=== PATIENT | female | born 1980 | race Two or more races ===

== ENCOUNTER 2019-03-20 18:07 | Inpatient (IN) | payer OTHER, MEDICAID ==
[~2019-03-20] VITALS: Ht 165.1 cm; Wt 102.6 kg
[~2019-03-20 18:07] MED LIST: ALBU0.084 INH; ALPR1TAB7 PO; AMI25T PO; BUSP10TA90 PO; HCTZ25T PO; IPRAAER6; LEVO150T10 PO; LISI10TA6 PO; LOSA-39 PO; METO1TAB9 PO; SERDISK
[2019-03-20] MEDS ORDERED: IPRATROPIUM BROM 0.5 MG/2.5ML INH SOL NEB ONE ×2 (18:45→19:30)
[2019-03-20] MEDS ORDERED: ALBUTEROL SULF 2.5 MG/0.5ML(0.5%) NEB SOLN NEB ONE ×2 (18:45→19:30)
[2019-03-20 19:22] LABS: Basophils # (auto) 0.1 uL; Basophils % (auto) 0.9 % (0.0-2.0); Eosinophils # (auto) 0.6 uL; Eosinophils % (auto) 11.5 % (0.0-7.0); Hematocrit 37.5 % (36.0-46.0); Hemoglobin 12.8 g/dL (12.2-16.2); Lymphocytes # (auto) 1.6 uL; Lymphocytes % (auto) 28.8 % (10.0-50.0); Mean Corpuscular Hemoglobin 32.9 pg (28.0-32.0); Mean Corpuscular Volume 96.8 fL (80.0-100.0); Monocytes # (auto) 0.3 uL; Monocytes % (auto) 5.6 % (0.0-12.0); Neutrophils % (auto) 53.2 % (37.0-80.0); Platelet Count (auto) 346 10^3/uL (140-450); Red Blood Cells 3.88 10^6/uL (4.0-5.20); White Blood Cell 5.6 10^3/uL (4.4-10.8)
[2019-03-20 19:30] LABS: Urine Bacteria NONE SEEN /hpf (None Seen); Urine Blood Negative /uL (Negative); Urine Mucus FEW (None Seen); Urine Specific Gravity 1.008 (1.001-1.035); Urine WBC 11 /hpf (0 - 5)
[2019-03-20] MEDS ORDERED: cefTRIAXone 1GM/50ML D5W 50 ML IV ONE ×2 (19:30→22:45)
[2019-03-20] MEDS ORDERED: methylPREDNISolone SOD SUCC 125 MG/2 ML VL IV ONE (19:30)
[2019-03-20 19:40] LABS: Alanine Aminotransferase 22 U/L (13-56); Albumin 3.1 g/dL (3.4-5.0); Anion Gap 6 (5-15); Aspartate Aminotransferase 15 U/L (15-37); BUN/Creatinine Ratio 18.3; Blood Urea Nitrogen 13 mg/dL (7-18); Calcium 7.1 mg/dL (8.5-10.1); Carbon Dioxide 24 mmol/L (21-32); Chloride 110 mmol/L (98-107); GFR African American 118 mL/min; GFR Non-African American 98 mL/min; Glucose 98 mg/dL (74-106); Magnesium 2.4 mg/dL (1.6-2.6); Sodium 140 mmol/L (136-145)
[2019-03-20 19:45] LABS: Alkaline Phosphatase 73 U/L (45-117); Bilirubin, Total 0.2 mg/dL (0.2-1.0); Total Protein 7.1 g/dL (6.4-8.2)
[2019-03-20] MEDS ORDERED: NITROGLYCERIN 0.4 MG SL TAB SL PRN (22:45)
[2019-03-20] MEDS ORDERED: AZITHROMYCIN 500MG/ 250ML 250 ML IV ONE (22:45)
[2019-03-20 23:17] VITALS: BP 129/81
[2019-03-21] VITALS (14 sets, daily range): BP systolic 97–187; BP diastolic 50–105
[2019-03-21] MEDS: MORPHINE SULF INJ 2 MG/ML SYRINGE 1ML IV PRN ×5 (00:32→18:18)
[2019-03-21] MEDS: ALPRAZolam 0.5 MG TAB PO PRN ×3 (00:32→23:00)
--- NOTE | 2019-03-21 01:10 | NUR ---
Telemetry admit from ER KEVIN BUTLER admitted to Telemetry unit. Patient oriented to Dc Epperson, primary RN, unit, room, bed, and unit policies regarding patient care and visiting hours. Patient now on continuous telemetry monitoring, tele box #6 and telemetry reading on arrival to unit is ST 100. Patient placed on bedside oxygen, weighed by bedscale and encouraged to call if they need something. All questions and concerns addressed, patient verbalized understanding.
[2019-03-21] MEDS ORDERED: OMEP20TA PO (02:51)
[2019-03-21] MEDS ORDERED: FLUO20CA19 PO (02:51)
[2019-03-21] MEDS ORDERED: [UNRECOGNIZED DRUG - CODE] PO (02:51)
[2019-03-21] MEDS: methylPREDNISolone SOD SUCC 40 MG/ML VL IV SCH ×2 (05:46→14:30)
[2019-03-21] MEDS: LEVOTHYROXINE SODIUM 50 MCG TAB PO SCH (05:53)
[2019-03-21] MEDS: IPRATROPIUM BROM 0.5 MG/2.5ML INH SOL NEB SCH ×6 (06:52→22:09)
[2019-03-21] MEDS: ALBUTEROL SULF 2.5 MG/0.5ML(0.5%) NEB SOLN NEB SCH ×6 (06:52→22:09)
[2019-03-21] MEDS: BUDESONIDE (INHALATION) 0.5 MG/2 ML NEB NEB SCH ×2 (06:53→18:06)
--- NOTE | 2019-03-21 07:25 | NUR ---
CLOSING SHIFT NOTE Care has been endorsed to day shift RN.
--- NOTE | 2019-03-21 07:35 | NUR ---
Opening Shift Note Assumed care of patient, awake and alert x4, resting in bed. No S/S of distress/SOB, no pain noted or reported. Respirations are even and unlabored on RA. Updated on POC and instructed to call for assistance as needed, pt. verbalized understanding. Bed locked in lowest position, side rails up x2, call light within reach. Will continue to monitor for changes Q1hr and PRN.
[2019-03-21] MEDS: cefTRIAXone 1GM/50ML D5W 50 ML IV SCH (09:10)
[2019-03-21] MEDS: AZITHROMYCIN 500MG/ 250ML 250 ML IV SCH (09:49)
[2019-03-21] MEDS: LISINOPRIL 10 MG TAB PO SCH (09:50)
--- NOTE | 2019-03-21 10:25 | NUR ---
Respiratory note: PT REFUSED MN TX AT THIS TIME. NO SOB OR DISTRESS NOTED. PT WAS NOTIFY HER NEXT TX WAS AT 1400. PT STATED SHE DID NOT NEED OR WANT IT AT THIS TIME.
[2019-03-21] MEDS ORDERED: METOPROLOL TARTRATE 1MG/1ML-5ML VIAL IV ONE (15:10)
[2019-03-21] MEDS ORDERED: LORazepam 2MG/ML-1ML VIAL ONE (15:15)
[2019-03-21] MEDS ORDERED: LEVALBUTEROL HCL 1.25 MG/3 ML NEB ONE (15:15)
[2019-03-21] MEDS ORDERED: IPRATROPIUM BROM 0.5 MG/2.5ML INH SOL ONE (15:16)
[2019-03-21] MEDS ORDERED: methylPREDNISolone SOD SUCC 125 MG/2 ML VL ONE (15:19)
[2019-03-21] MEDS ORDERED: LEVALBUTEROL HCL 1.25 MG/0.5 ML NEB SOLN HHN STA (15:20)
[2019-03-21] MEDS ORDERED: IPRATROPIUM BROM 0.5 MG/2.5ML INH SOL NEB ONE (15:20)
--- NOTE | 2019-03-21 15:30 | NUR ---
RT Transport Note: Patient transported to ICU 110 with BELLA WARNER. Patient transported to and from procedure on ventilator with previous ordered settings. Patient on forest technology professor with alarms set and audible, ambu-bag/mask connected to 02 tank. Patient returned to room with no adverse reaction noted. Transport completed without incident.
--- NOTE | 2019-03-21 15:30 | NUR ---
Upon answering the call light at 1452, pt. was sitting in tripod position and just finished breathing treatment 20 minutes prior. Pt was wheezing and having a hard time breathing and requested PRN morphine and xanax for her pain and anxiety. Medicated per Md orders at 1455. After medicating pt. become very diaphoretic and was struggling to breath. Tele reading in the 170's, BP was 168/115, and O2 sat was 78-81%. Dr. Mattson was made aware of condition and came to bedside. Medication orders were received and followed through. Respiratory therapy was paged stat and put pt. on Bipap. Pt. was transferred to ICU Rm 110.
--- NOTE | 2019-03-21 15:37 | NUR ---
RECEIVED PT. VIA BED TO RM. 110 ICU. PLACED ON ONLINE SERVICES MANAGER, PULSE OX, BP CUFF. PT. ALERT AND ORIENTED TIMES FOUR. DENIES ANY PAIN OR DISCOMFORT, PREVIOUSLY MED. PT. SITTING UP IN HIGH FOWLERS POSITION, SOB, DIAPHORETIC, WORKING TO BREATH. RT PLACED PT. ON BIPAP 12/, FIO2-100%. O2 SATS 93%-95%. LUNGS WITH WHEEZES INSPIRATORY AND EXPIRATORY THROUGHOUT ANTERIOR AND POSTERIOR LUNGS. ABD. SOFT, FLAT, NON-TENDER. BOWEL SOUNDS ALL FOUR QUADRANTS. NO N/V. RADIAL PULSES STRONG, PALPABLE JAQUELINE. PEDAL PULSES STRONG, PALPABLE JAQUELINE. NO EDEMA. PT. MOVES ALL EXTREMITIES WITHOUT DIFFICULTY.
--- NOTE | 2019-03-21 16:15 | NUR ---
RT TOOK PT. OFF BIPAP AND PLACED ON 02 3L N/C. NO SOB. NO LONGER DIAPHORETIC. O2 SATS 93%. NO SIGNS OF RESP. DISTRESS.
--- NOTE | 2019-03-21 17:00 | NUR ---
VISITOR AT THE BS.
[2019-03-21] MEDS: methylPREDNISolone SOD SUCC 125 MG/2 ML VL IV SCH (17:32)
--- NOTE | 2019-03-21 17:45 | NUR ---
O2 SATS 91% ON 02 3L N/C. NO SOB. WHEEZES JAQUELINE. INSPIRATORY AND EXPIRATORY. RR TEENS. INCREASED O2 TO 4L N/C, ADDED HUMIDIFIER. MONITORING PT.
--- NOTE | 2019-03-21 18:15 | NUR ---
O2 SATS 91%-93%. NO SIGNS OF RESP. DISTRESS.
--- NOTE | 2019-03-21 18:18 | NUR ---
PT. REPORTING PAIN LT. LATERAL CHEST 9 ON A SCALE OF 0-10. MED. WITH MORPHINE 2MG. IVP.
[2019-03-21] MEDS: AMITRIPTYLINE HCL 25 MG TAB PO SCH (22:04)
[2019-03-22] VITALS (17 sets, daily range): BP systolic 105–142; BP diastolic 56–100
[2019-03-22] MEDS: methylPREDNISolone SOD SUCC 125 MG/2 ML VL IV SCH ×5 (00:01→23:47)
[2019-03-22] MEDS: HYDROcodone-ACET 5/325MG TAB PO PRN ×4 (00:21→23:51)
[2019-03-22] MEDS: IPRATROPIUM BROM 0.5 MG/2.5ML INH SOL NEB SCH ×6 (02:08→22:36)
[2019-03-22] MEDS: ALBUTEROL SULF 2.5 MG/0.5ML(0.5%) NEB SOLN NEB SCH ×6 (02:08→22:36)
--- NOTE | 2019-03-22 06:00 | NUR ---
OUT OF BED OUT OF BED TO USE TOILET. DURING AMBULATION PT'S HR INCREASED TO 110'S AND RESP RATE IN LOW 20'S, OTHER VITAL SIGNS ARE STABLE.
[2019-03-22] MEDS: BUDESONIDE (INHALATION) 0.5 MG/2 ML NEB NEB SCH ×2 (06:10→18:15)
[2019-03-22] MEDS: LEVOTHYROXINE SODIUM 50 MCG TAB PO SCH (06:33)
[2019-03-22] MEDS: ALPRAZolam 0.5 MG TAB PO PRN ×2 (06:33→20:56)
--- NOTE | 2019-03-22 07:45 | NUR ---
ASSESS- PT. LYING IN BED ASLEEP, WAKENS TO NAME. ALERT AND ORIENTED TIMES FOUR. DENIES ANY PAIN OR DISCOMFORT AT THIS TIME. LUNGS WITH WHEEZES INSPIRATORY AND EXPIRATORY THROUGHOUT LUNGS. NO SOB. O2 4L N/C WITH HUMIDIFIER. ABD. SOFT, FLAT, NON-TENDER. BOWEL SOUNDS ALL FOUR QUADRANTS. NO N/V. VOIDS VIA TOILET WITHOUT DIFFICULTY. RADIAL PULSES STRONG, PALPABLE JAQUELINE. PEDAL PULSES STRONG, PALPABLE JAQUELINE. 1 PLUS EDEMA NON-PITTING FT. JAQUELINE. SKIN INTACT. PT. MOVES ALL EXT. WITHOUT DIFFICULTY AND TURNS SELF IN BED.
[2019-03-22] MEDS: cefTRIAXone 1GM/50ML D5W 50 ML IV SCH (08:53)
[2019-03-22] MEDS: AZITHROMYCIN 500MG/ 250ML 250 ML IV SCH (10:09)
[2019-03-22] MEDS: LISINOPRIL 10 MG TAB PO SCH (10:09)
--- NOTE | 2019-03-22 10:30 | NUR ---
O2 SATS 97%-98% ON 4L N/C. NO SOB. WHEEZES HEARD THROUGHOUT LUNGS INSPIRATORY AND EXPIRATORY. NO SIGNS OF RESP. DISTRESS. DECREASED O2 TO 3L N/C WITH HUMIDIFIER.
[2019-03-22] MEDS ORDERED: guaiFENesin-DM 100/10mg/5ml SYR PO PRN (10:45)
--- NOTE | 2019-03-22 10:50 | NUR ---
O2 SATS REMAIN 97%. NO SOB OR SIGNS OF RESP. DISTRESS.
--- NOTE | 2019-03-22 11:00 | NUR ---
DR. MOREJON Provider/Hospitalist at bedside. GAVE UPDATE ON PT. NEW ORDERS RECEIVED. PT. DOWNGRADED TO TELEMETRY.
--- NOTE | 2019-03-22 11:05 | NUR ---
PT. HAS NON-PRODUCTIVE DRY COUGH. MED. PT. WITH ROBITUSSIN 10ML. PO.
--- NOTE | 2019-03-22 13:15 | NUR ---
GAVE REPORT TO SHANE DONG. PT. GOING TO RM. 246-A. NO TELE BOX AVAILABLE AT THIS TIME. INFORMED CHARGE NURSE.
--- NOTE | 2019-03-22 13:30 | NUR ---
FAMILY VISITING AT THE .
--- NOTE | 2019-03-22 14:20 | NUR ---
Received patient to Room 246A. Patient placed on O2 3L. Patient is alert and oriented. Call light in reach. Will continue to monitor.
--- NOTE | 2019-03-22 14:20 | NUR ---
PT. TRANSFERRED VIA W/C WITH O2 3L N/C TO RM. 246-A ON TELE #43. BELONGINGS WITH PT. REPORT GIVEN TO SHANE DONG.
--- NOTE | 2019-03-22 14:26 | NUR ---
RT NOTE: PEAK FLOW PRE- 180, POST-220
--- NOTE | 2019-03-22 18:19 | NUR ---
RT NOTE: PEAK FLOW ASSESSMENT: PRE- 250LPM, POST- 220LPM
--- NOTE | 2019-03-22 19:30 | NUR ---
Opening Note Assumed pt care from day shift nurse. Pt is a/ox4 with no s/s of distress. Pt states that she is mildly SOB and states that she feels like she cannot catch her breath. Discussed available breathing treatments and encouraged her to take deep breaths; pt verbalized understanding. Lungs are wheezy upon exhalation bilaterally anterior and posterior. Safety measures maintained with call light within reach, bed in lowest position and side rails up. Will continue to monitor for changes q1hr and prn.
[2019-03-22] MEDS: MONTELUKAST SODIUM 10 MG TAB PO SCH (20:56)
[2019-03-22] MEDS: AMITRIPTYLINE HCL 25 MG TAB PO SCH (20:56)
--- NOTE | 2019-03-22 22:35 | NUR ---
RT NOTE: PEAK FLOW ASSESSMENT: PRE- 280LPM, POST- 300LPM
[2019-03-23] MEDS: HYDROcodone-ACET 5/325MG TAB PO PRN ×3 (04:10→22:51)
[2019-03-23 05:00] VITALS: BP 136/86
[2019-03-23] MEDS: methylPREDNISolone SOD SUCC 125 MG/2 ML VL IV SCH ×2 (05:45→18:09)
[2019-03-23] MEDS: LEVOTHYROXINE SODIUM 50 MCG TAB PO SCH (06:22)
[2019-03-23] MEDS: IPRATROPIUM BROM 0.5 MG/2.5ML INH SOL NEB SCH ×5 (06:55→22:30)
[2019-03-23] MEDS: ALBUTEROL SULF 2.5 MG/0.5ML(0.5%) NEB SOLN NEB SCH ×5 (06:55→22:30)
[2019-03-23] MEDS: BUDESONIDE (INHALATION) 0.5 MG/2 ML NEB NEB SCH ×2 (06:55→18:31)
--- NOTE | 2019-03-23 08:00 | NUR ---
Opening Shift Note Assumed care of patient, awake and alert. No S/S of distress/SOB or pain. Instructed on POC and to call for assist PRN, will continue to monitor for changes Q1hr and PRN.
[2019-03-23 09:00] VITALS: BP 134/89
[2019-03-23] MEDS: cefTRIAXone 1GM/50ML D5W 50 ML IV SCH (09:15)
[2019-03-23] MEDS: LISINOPRIL 10 MG TAB PO SCH (09:16)
[2019-03-23] MEDS: AZITHROMYCIN 500MG/ 250ML 250 ML IV SCH (11:00)
[2019-03-23 13:00] VITALS: BP 142/88
[2019-03-23 17:00] VITALS: BP 133/86
--- NOTE | 2019-03-23 18:21 | NUR ---
Respiratory note: PEAK FLOWS DONE PRE AND POST TX, 320 PRE, 330 POST. GOOD PT EFFORT.
[2019-03-23 19:19] VITALS: BP 133/86
[2019-03-23 22:07] VITALS: BP 117/74
--- NOTE | 2019-03-23 22:24 | NUR ---
Respiratory note: TX GIVEN, TOLERATED WELL. PT REFUSING PEAK FLOW AT THIS TIME, STATES SHE IS TOO TIRED.
[2019-03-23] MEDS: AMITRIPTYLINE HCL 25 MG TAB PO SCH (22:51)
[2019-03-23] MEDS: MONTELUKAST SODIUM 10 MG TAB PO SCH (22:52)
[2019-03-24] MEDS: HYDROcodone-ACET 5/325MG TAB PO PRN (04:59)
[2019-03-24 05:18] VITALS: BP 121/77
[2019-03-24] MEDS: ALBUTEROL SULF 2.5 MG/0.5ML(0.5%) NEB SOLN NEB SCH ×2 (06:21→09:49)
[2019-03-24] MEDS: IPRATROPIUM BROM 0.5 MG/2.5ML INH SOL NEB SCH ×2 (06:21→09:49)
[2019-03-24] MEDS: methylPREDNISolone SOD SUCC 125 MG/2 ML VL IV SCH (06:24)
[2019-03-24] MEDS: LEVOTHYROXINE SODIUM 50 MCG TAB PO SCH (06:24)
--- NOTE | 2019-03-24 07:03 | NUR ---
Care endorsed to Marnie LYNN.
--- NOTE | 2019-03-24 08:30 | NUR ---
RESP ASSESSMENT LUNGS WITH WHEEZES LT BASE. STATES SHE FEELS BETTER BUT HAS CHRONIC PAIN LT RIB CAGE AREA. STATES HURTS WORSE WHEN SHE IS ON STEROIDS. NO RESP DISTRESS. STSTED SHE HOPED TO BE DISCHARGED TODAY
[2019-03-24 09:00] VITALS: BP 134/85
[2019-03-24] MEDS: cefTRIAXone 1GM/50ML D5W 50 ML IV SCH (09:38)
[2019-03-24] MEDS: BUDESONIDE (INHALATION) 0.5 MG/2 ML NEB NEB SCH (09:49)
--- NOTE | 2019-03-24 09:49 | NUR ---
Respiratory note: PEAK FLOW ASSESSMENT: PRE 400 ML POST 400 ML
[2019-03-24] MEDS ORDERED: AZITHROMYCIN 250 MG TAB PO SCH (10:00)
[2019-03-24] MEDS: LISINOPRIL 10 MG TAB PO SCH (10:05)
--- NOTE | 2019-03-24 10:25 | NUR ---
DR. MOREJON IN. PLAN TO DISCHARGE IF SPO2 WNL. O2 REMOVED
[2019-03-24] MEDS ORDERED: AZIT250T7 PO (10:55)
[2019-03-24] MEDS ORDERED: MONT10TA23 PO (10:55)
--- NOTE | 2019-03-24 11:20 | NUR ---
CASH RT CHECKED SPO2 ON RA X1HR= 95%
[2019-03-24 11:25] VITALS: BP 134/85
--- NOTE | 2019-03-24 11:35 | NUR ---
[facility] AT [facility]EDSIDE WITH DISCHARGE MEDS
--- NOTE | 2019-03-24 12:17 | NUR ---
DISCHG INSTRUCTIONS GIVEN IV DC INTACT SITE CLEAN. 2X2, [employer]AN DRESSING APPLIED PT HAS APPT WITH HER PMD TOMORROW. GIVEN PACKET FOR HER PMD. AWAITING RIDE FROM SON; HE WILL BE HERE SHORTLY
[2019-03-24 12:30] VITALS: BP 135/84
--- NOTE | 2019-03-24 12:30 | NUR ---
DISCHARGE VIA WC TO PRIVATE CAR. ALL BELONGINGS SIGNED FOR AND SENT WITH PT. HAS HER MEDS INSTRUCTED BY [facility]. AMB TO CAR WITHOUT DIFFICULTY NO RESP DISTRESS.
== END 2019-03-24 12:30 | disposition home or self-care (01) | DRG 189 ==
LOC: ER 18:10 → TELE 18:11 → TELE-EAST 03-21 01:07 → TELE-WESTW 03-21 01:10 → ICU WEST 03-21 15:37 → TELE-EAST 03-22 14:19 → EAST 03-23 19:38
PROVIDERS: ADMIT Internal Medicine; ATTEND Internal Medicine
PROC: 5A09357 Assistance with Respiratory Ventilation, Less than 24 Consecutive Hours, Continuous Positive Airway Pressure (ICD-10-PCS; principal; 2019-03-21)
DX: J96.00 Acute respiratory failure, unspecified whether with hypoxia or hypercapnia (principal); N39.0 Urinary tract infection, site not specified; J45.42 Moderate persistent asthma with status asthmaticus; I42.9 Cardiomyopathy, unspecified; E66.01 Morbid (severe) obesity due to excess calories; E03.9 Hypothyroidism, unspecified; F32.9 Major depressive disorder, single episode, unspecified; E78.5 Hyperlipidemia, unspecified; F41.9 Anxiety disorder, unspecified; I25.10 Atherosclerotic heart disease of native coronary artery without angina pectoris; I50.9 Heart failure, unspecified; Z82.3 Family history of stroke; Z82.49 Family history of ischemic heart disease and other diseases of the circulatory system; Z83.3 Family history of diabetes mellitus; Z85.850 Personal history of malignant neoplasm of thyroid; Z86.711 Personal history of pulmonary embolism; Z95.810 Presence of automatic (implantable) cardiac defibrillator; Z98.84 Bariatric surgery status; Z80.9 Family history of malignant neoplasm, unspecified; Z82.61 Family history of arthritis; Z88.6 Allergy status to analgesic agent; Z88.8 Allergy status to other drugs, medicaments and biological substances; Z79.84 Long term (current) use of oral hypoglycemic drugs; E11.9 Type 2 diabetes mellitus without complications
CPT/HCPCS: 36415; 36600; 71045; 71046; 80053; 81001; 81025; 82805; 83036; 83735; 83880; 84484; 85025; 87081; 87086; 94010; 94640; 94660; 96365; 96366; 96367; 96375; G0378; J0696

== ENCOUNTER 2019-05-16 14:49 | Emergency (ER) | payer OTHER, MEDICAID ==
[~2019-05-16] VITALS: Ht 165.1 cm; Wt 88.5 kg
[~2019-05-16 14:49] MED LIST changes: +AZIT250T7 PO; +FLUO20CA19 PO; -LISI10TA6 PO; -LOSA-39 PO; +MONT10TA23 PO; +OMEP20TA PO; +[UNRECOGNIZED DRUG - CODE] PO
[2019-05-16] MEDS ORDERED: methylPREDNISolone SOD SUCC 125 MG/2 ML VL ONE (14:57)
[2019-05-16] MEDS ORDERED: TERBUTALINE SULFATE 1 MG/ML 1ML VIAL SC ONE (15:00)
[2019-05-16] MEDS ORDERED: methylPREDNISolone SOD SUCC 125 MG/2 ML VL IV ONE (15:00)
[2019-05-16] MEDS ORDERED: SODIUM CHLORIDE 0.9% 1,000 ML IV ONE (15:19)
[2019-05-16 15:51] LABS: Basophils # (auto) 0 uL; Basophils % (auto) 0.4 % (0.0-2.0); Eosinophils # (auto) 0.1 uL; Eosinophils % (auto) 1.4 % (0.0-7.0); Hematocrit 39.8 % (36.0-46.0); Hemoglobin 13.2 g/dL (12.2-16.2); Lymphocytes # (auto) 3.2 uL; Lymphocytes % (auto) 32.3 % (10.0-50.0); Mean Corpuscular Hemoglobin 31.3 pg (28.0-32.0); Mean Corpuscular Hgb Conc. 33.2 g/dL (32.0-36.0); Mean Corpuscular Volume 94.3 fL (80.0-100.0); Monocytes # (auto) 0.7 uL; Monocytes % (auto) 7.1 % (0.0-12.0); Neutrophils # (auto) 5.8 uL; Neutrophils % (auto) 58.8 % (37.0-80.0); Nucleated Red Blood Cells % 0.1 %; Platelet Count (auto) 427 10^3/uL (140-450); Red Blood Cells 4.22 10^6/uL (4.0-5.20); Red Cell Distribution Width 13.4 % (11.8-14.3); White Blood Cell 9.8 10^3/uL (4.4-10.8)
[2019-05-16 15:53] LABS: Albumin 3.9 g/dL (3.4-5.0); BUN/Creatinine Ratio 14.9; Calcium 7.7 mg/dL (8.5-10.1); Magnesium 2.5 mg/dL (1.6-2.6); Potassium 4.1 mmol/L (3.5-5.1)
[2019-05-16 15:56] LABS: Bilirubin, Total 0.5 mg/dL (0.2-1.0)
[2019-05-16 16:04] LABS: Beta HCG, Quantitative < 1 mlU/mL (1-3)
[2019-05-16 16:52] VITALS: BP 121/69
== END 2019-05-16 17:42 | disposition home or self-care (01) ==
LOC: ER 14:49 → MERGE 14:49 → EDBD 14:49 → ER 17:42
DX: J45.901 Unspecified asthma with (acute) exacerbation (principal); N39.0 Urinary tract infection, site not specified; E03.9 Hypothyroidism, unspecified; I50.9 Heart failure, unspecified; K21.9 Gastro-esophageal reflux disease without esophagitis; E07.9 Disorder of thyroid, unspecified
CPT/HCPCS: 36415; 71045; 80053; 81002; 81025; 83735; 84443; 84702; 85025; 93005; 94660; 94761; 96372; 99284; J2930; J3105; J7030

== ENCOUNTER 2019-05-24 19:30 | Inpatient (IN) | payer OTHER, MEDICAID ==
[~2019-05-24] VITALS: Ht 165.1 cm; Wt 98.2 kg
[2019-05-24] MEDS: fentaNYL Drip 2500mCg/250mlNS 250 ML IV SCH (16:15)
[2019-05-24] MEDS ORDERED: IPRATROPIUM BROM 0.5 MG/2.5ML INH SOL ONE (19:37)
[2019-05-24] MEDS ORDERED: ALBUTEROL SULF 2.5 MG/0.5ML(0.5%) NEB SOLN ONE (19:37)
[2019-05-24 19:45] VITALS: BP 153/79
[2019-05-24] MEDS ORDERED: ALBUTEROL SULF 2.5 MG/0.5ML(0.5%) NEB SOLN NEB ONE (19:45)
[2019-05-24] MEDS ORDERED: IPRATROPIUM BROM 0.5 MG/2.5ML INH SOL NEB ONE (19:45)
[2019-05-24] MEDS ORDERED: LORazepam 2MG/ML-1ML VIAL IV ONE (19:45)
[2019-05-24] MEDS ORDERED: methylPREDNISolone SOD SUCC 125 MG/2 ML VL IV ONE (19:45)
--- NOTE | 2019-05-24 19:45 | NUR ---
Respiratory note: At bedside in er bed 16, pt came in via ambulance on cpap. Placed on bipap b9, bipap connected to red outlet and o2 source. Alarms are set and audible. Ambu bag and mask at bedside , Pt on size (m) mask no redness or breakdown noted prior to placement. BS are bilaterally course with fine expiratory wheezes. Med neb tx given inline without adverse reaction noted. pt communicating by writing on paper. RN [place] at bedside and aware of settings and pts needs.
[2019-05-24 20:07] LABS: Basophils # (auto) 0.1 uL; Basophils % (auto) 0.9 % (0.0-2.0); Eosinophils # (auto) 0 uL; Hematocrit 38.9 % (36.0-46.0); Hemoglobin 12.9 g/dL (12.2-16.2); Lymphocytes % (auto) 7.2 % (10.0-50.0); Mean Corpuscular Hemoglobin 31.3 pg (28.0-32.0); Mean Corpuscular Hgb Conc. 33.2 g/dL (32.0-36.0); Mean Corpuscular Volume 94.3 fL (80.0-100.0); Monocytes # (auto) 0.6 uL; Monocytes % (auto) 4.5 % (0.0-12.0); Neutrophils # (auto) 11.9 uL; Neutrophils % (auto) 87.4 % (37.0-80.0); Platelet Count (auto) 401 10^3/uL (140-450); Red Blood Cells 4.13 10^6/uL (4.0-5.20); Red Cell Distribution Width 14.2 % (11.8-14.3); White Blood Cell 13.6 10^3/uL (4.4-10.8)
[2019-05-24 20:24] LABS: Albumin 3.9 g/dL (3.4-5.0); BUN/Creatinine Ratio 19.5; Calcium 7.8 mg/dL (8.5-10.1); Potassium 4.5 mmol/L (3.5-5.1)
[2019-05-24 20:35] LABS: Bilirubin, Total 0.2 mg/dL (0.2-1.0); Total Protein 7.6 g/dL (6.4-8.2)
[2019-05-24 20:49] VITALS: BP 128/78
--- NOTE | 2019-05-24 20:49 | NUR ---
Respiratory note: AT BEDSIDE FOR ROUTINE BIPAP CHECK. NO CHANGES MADE AT THIS TIME. MASK READJUSTED TO ACHIEVE ACCEPTABLE LEAK. PTS FAMILY AT BEDSIDE.
[2019-05-24 20:52] VITALS: BP 153/79
[2019-05-24] MEDS ORDERED: ONDANSETRON HCL 4 MG/2 ML VIAL ONE (20:57)
[2019-05-24] MEDS ORDERED: ONDANSETRON HCL 4 MG/2 ML VIAL IV ONE (21:00)
[2019-05-24] MEDS ORDERED: ETOMIDATE (2MG/ML) 20ML VIAL IV ONE ×2 (21:28→21:30)
[2019-05-24] MEDS ORDERED: SUCCINYLCHOLINE CHLORIDE 20 MG/ML 10ML VIAL IV ONE ×2 (21:28→21:30)
[2019-05-24] MEDS ORDERED: methylPREDNISolone SOD SUCC 125 MG/2 ML VL ONE (21:49)
[2019-05-24 21:50] VITALS: BP 126/76
--- NOTE | 2019-05-24 21:50 | NUR ---
Respiratory note: PT INTUBATED AT 21:[address] SPENCE ON 3DR ATTEMPT, PT INTUBATED WITH 8.0 ETT SECURED AT 22CM AT THE LIP. BILATERAL BS HEARD, POSITIVE COLOR CHANGE ON CO2 DETECTOR. CONDENSATION SEEN IN ETT. PLACED ON VENT V15, VENT CONNECTED TO RED OUTLET AND O2 SOURCE. ALARMS ARE SET AND AUDIBLE. AMBU BAG AND MASK AT BEDSIDE. BS ARE COURSE WHEEZES T/O, SXD SCANT BLOOD TINGE CLEAR. SPUTUM SAMPLE OBTAINED AND SENT TO LAB AT THIS TIME. RN ESTRADA AWARE OF ALL RESPIRATORY INTERVENTIONS. WILL CONTINUE TO MONITOR NEEDED.
[2019-05-24] MEDS ORDERED: MIDAZOLAM DRIP 50 mg/50mL 50 ML IV ONE (21:52)
[2019-05-24] MEDS: MIDAZOLAM DRIP 50 mg/50mL 50 ML IV SCH ×2 (21:52→22:51)
[2019-05-24] MEDS ORDERED: FAMOTIDINE (10MG/ML) 2ML VL IV ONE (22:00)
--- NOTE | 2019-05-24 22:06 | NUR ---
Respiratory note: ETT ADVANCED FROM 22CM AT THE LIP TO 24CM AT THE LIP. RN ESTRADA MADE AWARE.
[2019-05-24] MEDS ORDERED: fentaNYL Drip 2500mCg/250mlNS 250 ML IV SCH (22:17)
[2019-05-24] MEDS ORDERED: fentaNYL Drip 2500mCg/250mlNS 250 ML IV ONE (22:22)
[2019-05-24] MEDS ORDERED: PROPOFOL 100 ML IV ONE (22:43)
[2019-05-24] MEDS ORDERED: PROPOFOL 100 ML IV SCH (23:31)
[2019-05-24] MEDS ORDERED: NOREPINEPHRINE 8 MG/250ML KIT 250 ML IV ONE (23:32)
[2019-05-24] MEDS ORDERED: MORPHINE SULF INJ 2 MG/ML SYRINGE 1ML IV PRN (23:45)
[2019-05-24] MEDS ORDERED: AZITHROMYCIN 500MG/ 250ML 250 ML IV ONE (23:45)
[2019-05-24] MEDS ORDERED: NITROGLYCERIN 0.4 MG SL TAB SL PRN (23:45)
[2019-05-24] MEDS ORDERED: BUDESONIDE (INHALATION) 0.5 MG/2 ML NEB NEB ONE (23:45)
[2019-05-24] MEDS ORDERED: SODIUM CHLORIDE 0.9% 1,000 ML IV ONE (23:45)
[2019-05-24] MEDS ORDERED: cefTRIAXone 1GM/50ML D5W 50 ML IV ONE (23:45)
[2019-05-24 23:53] LABS: Urine Bacteria FEW /hpf (None Seen); Urine Blood Negative /uL (Negative); Urine Hyaline Cast FEW /lpf (0 - 2); Urine Mucus FEW (None Seen); Urine Specific Gravity 1.013 (1.001-1.035); Urine WBC <1 /hpf (0 - 5)
[2019-05-25] VITALS (100 sets, daily range): BP systolic 75–146; BP diastolic 28–98
--- NOTE | 2019-05-25 00:07 | NUR ---
Respiratory note: AT BEDSIDE FOR ROUTINE VENT CHECK, PTS FAMILY AT BEDSIDE. MED NEB TX GIVEN INLINE WITHOUT ADVERSE REACTION NOTED. WILL CONTINUE TO MONITOR.
--- NOTE | 2019-05-25 00:25 | NUR ---
Respiratory note: FIO2 TITRATED TO 50% POST ABG RESULTS. PT TOLERATING CHANGE WELL. RN ESTRADA Guzman MADE AWARE OF CHANGE.
--- NOTE | 2019-05-25 00:50 | NUR ---
ARRIVAL NOTE PT ARRIVED TO ICU FROM ER AND PLACED IN ROOM 108. RECEIVED PT ON VENTILATOR WITH SEDATION. PROP AT 10 MCG, VERSED A 5 MG, AND FENTANYL AT 100 MCG. RECEIVED PT ON LEVO AT 10 MCG. PT STACH, 102, BP 104/57. SPO2 100% RR 16. PT WEIGHED AT 98.6 KGS. PT ATTACHED TO ICU MONITORING. RECEIVED PT WITH 20 G LEFT WRIST IV, 18 LFT AC, AND 20 G RIGHT WRIST. IV SITES BENIGN. MACIEL CATHETER IN PLACE, DRAINING TO GRAVITY. BED LOCKED AND IN LOWEST POSITION, SAFETY PRECAUTIONS IN PLACE. NO PERSONAL BELONGINGS BROUGHT WITH PATIENT.
[2019-05-25] MEDS: NOREPINEPHRINE 8 MG/250ML KIT 250 ML IV SCH ×2 (01:00→11:20)
--- NOTE | 2019-05-25 01:20 | NUR ---
FAMILY AT BEDSIDE PARENTS AT BEDSIDE. POC REVIEWED WITH THEM OBTAINED CONTACT INFORMATION AND PASSWORD, SEE INTERVENTION SPREADSHEET FOR DETAILS. ICU POLICY AND PROCEDURES REVIEWED WITH PARENTS. VERBALIZED UNDERSTANDING.
[2019-05-25] MEDS: PROPOFOL 100 ML IV SCH (01:53)
[2019-05-25] MEDS: ALBUTEROL SULF 2.5 MG/0.5ML(0.5%) NEB SOLN NEB SCH ×6 (02:03→22:29)
[2019-05-25] MEDS: IPRATROPIUM BROM 0.5 MG/2.5ML INH SOL NEB SCH ×6 (02:03→22:29)
--- NOTE | 2019-05-25 02:03 | NUR ---
Respiratory note: AT BEDSIDE FOR ROUTINE VENT CHECK. BS ARE FINE COURSE WHEEZES T/O. MED NEB TX GIVEN INLINE WITHOUT ADVERSE REACTION NOTED. WILL CONTINUE TO MONITOR.
--- NOTE | 2019-05-25 02:09 | NUR ---
Respiratory note: TITRATED FIO2 TO 30% ON VENT. PT TOLERATING CHANGE WELL. SHANE CHAUHAN AT BEDSIDE AND MADE AWARE.
--- NOTE | 2019-05-25 02:51 | NUR ---
SEDATION PT WOKE UP AND REMOVED MITTENS AND WENT TO GRAB ET TUBE. PT INSTRUCTED NOT TO PULL ON TUBE. PT NODDED HEAD IN UNDERSTANDING. PT FOLLOWS SIMPLE COMMANDS. PROPOFOL INCREASED TO 20MCG AT THIS TIME.
--- NOTE | 2019-05-25 04:10 | NUR ---
Respiratory note: AT BEDSIDE FOR END OF SHIFT VENT CHECK. HEM CHANGED AT THIS TIME. NO VENT CHANGES MADE. ATTEMPTED TO PLACE SEVERAL BITE BLOCKS PT KEEPS PUSHING OUT. PT IS NOTICED TO BE FOLLOWING SOME COMMANDS AND NODDING YES AND NO. PT REMAINS WITH EYES CLOSE DURING COMMUNICATION ATTEMPTS. FOR PTS SAFETY AND TO FACILITATE SX, I SWITCHED ETT CANNON WITH ONE THAT HAS BITE BLOCK INTEGRATED. PTS ETT WAS FOUND TO BE AT 22CM AT THE LIP. SHANE CHAUHAN COMMUNICATED PTS SEDATION WAS INCREASED DUE TO HER WAKING UP AND REACHING TO TUBE. COMMUNICATED TO RN THAT SHE MIGHT HAVE TRIED TO PULL SINCE ETT WAS NOT AT 24CM AT THE LIP LAST VENT CHECK. ETT ADVANCED TO 24CM AT THE LIP AND ETT CANNON WAS SWITCHED WITHOUT INCIDENT. SHANE CHAUHAN AWARE OF CHANGES, WILL HAVE DAY SHIFT RT CONTINUE POC.
[2019-05-25 05:38] LABS: Basophils # (auto) 0 uL; Basophils % (auto) 0.1 % (0.0-2.0); Eosinophils # (auto) 0 uL; Hematocrit 34.5 % (36.0-46.0); Hemoglobin 11.4 g/dL (12.2-16.2); Lymphocytes # (auto) 0.7 uL; Lymphocytes % (auto) 3.8 % (10.0-50.0); Mean Corpuscular Hemoglobin 31.4 pg (28.0-32.0); Mean Corpuscular Volume 95.1 fL (80.0-100.0); Monocytes # (auto) 0.4 uL; Neutrophils # (auto) 18.1 uL; Neutrophils % (auto) 94.1 % (37.0-80.0); Platelet Count (auto) 359 10^3/uL (140-450); Red Blood Cells 3.62 10^6/uL (4.0-5.20); Red Cell Distribution Width 14.1 % (11.8-14.3); White Blood Cell 19.2 10^3/uL (4.4-10.8)
[2019-05-25 05:42] LABS: Albumin 3.4 g/dL (3.4-5.0); BUN/Creatinine Ratio 13.5; Calcium 6.7 mg/dL (8.5-10.1); INR 0.94 (0.9-1.15); Partial Thromboplastin Time 22.1 sec (23.64-32.05); Potassium 4.1 mmol/L (3.5-5.1)
[2019-05-25 05:45] LABS: Bilirubin, Total 0.2 mg/dL (0.2-1.0); Total Protein 6.8 g/dL (6.4-8.2)
[2019-05-25] MEDS ORDERED: methylPREDNISolone SOD SUCC 40 MG/ML VL IV SCH (06:00)
[2019-05-25] MEDS: MIDAZOLAM DRIP 50 mg/50mL 50 ML IV SCH ×2 (06:03→11:20)
[2019-05-25] MEDS: BUDESONIDE (INHALATION) 0.5 MG/2 ML NEB NEB SCH ×2 (06:23→19:05)
--- NOTE | 2019-05-25 08:40 | NUR ---
ECHO light rail signal technician at bedside to obtain study.
[2019-05-25] MEDS: cefTRIAXone 1GM/50ML D5W 50 ML IV SCH (09:00)
[2019-05-25] MEDS ORDERED: methylPREDNISolone SOD SUCC 125 MG/2 ML VL IV ONE (09:30)
[2019-05-25] MEDS ORDERED: ALBUTEROL SULF 2.5 MG/0.5ML(0.5%) NEB SOLN NEB ONE ×2 (09:30→16:15)
--- NOTE | 2019-05-25 09:30 | NUR ---
HOSPICE ENTRANCE ATTENDANT HOSPICE ENTRANCE ATTENDANT Espinoza Campa called to speak to RT regarding patient high peak pressures and setting ventilator off. Spoke to Espinoza COLÓN and updated on patient condition, received new orders this RN to input into system. Will carry out orders per HOSPICE ENTRANCE ATTENDANT.
[2019-05-25] MEDS ORDERED: methylPREDNISolone SOD SUCC 125 MG/2 ML VL ONE (09:40)
[2019-05-25] MEDS: FAMOTIDINE (10MG/ML) 2ML VL IV SCH ×2 (09:46→22:19)
[2019-05-25] MEDS: AZITHROMYCIN 500MG/ 250ML 250 ML IV SCH (09:46)
[2019-05-25] MEDS: MAGNESIUM SULFATE 1GM/100ML 100 ML IV SCH ×2 (09:53→11:00)
--- NOTE | 2019-05-25 10:05 | NUR ---
KATARZYNA Campa aware of ABG results and states " Will speak to Dr. Bashir to see what we should do."
--- NOTE | 2019-05-25 10:15 | NUR ---
PICC CONSENT Called and spoke to Cheyanne miller mother at [phone], correct password provided, and consent obtained over the phone with Alejandro LYNN as the second RN to witness.
--- NOTE | 2019-05-25 10:20 | NUR ---
MD Dr. Bashir at bedside updated on patient condition with new orders, MD to input into system. Will carry out orders and will monitor closely.
[2019-05-25] MEDS ORDERED: DEXTROSE (50%) 50ML SYRG IV PRN (10:30)
[2019-05-25] MEDS: InsuLIN REG 1unit/0.01ml Soln (100units/ml) SC SCH ×2 (12:00→18:00)
[2019-05-25] MEDS: ACCU-CHEK COMFORT CURVE STRIP VI SCH ×2 (12:00→18:00)
--- NOTE | 2019-05-25 13:45 | NUR ---
PICC LINE NURSE Picc line nurse Anita RN at bedside to obtain line.
[2019-05-25] MEDS ORDERED: methylPREDNISolone SOD SUCC 125 MG/2 ML VL IV SCH (14:00)
[2019-05-25] MEDS: methylPREDNISolone SOD SUCC 125 MG/2 ML VL IV SCH ×2 (14:00→22:19)
--- NOTE | 2019-05-25 14:14 | NUR ---
MD Dr. Bashir called and aware of ABG results post ventilator changes received new orders, this RN to in put int system. Will carry out orders.
--- NOTE | 2019-05-25 14:15 | NUR ---
LEVOPHED GTT Levophed gtt increased to 12mcg for a blood pressure of 81/28, will continue to monitor patient closely.
[2019-05-25] MEDS ORDERED: LIDOCAINE 1% (LOCAL ANESTH.) PF 5ml SDV ID ONE (14:30)
--- NOTE | 2019-05-25 14:33 | NUR ---
PICC line placement Patient significant other educated on need for PICC line placement. All risks and benefits explained and all questions and concerns addressed prior to procedure. Noted past medical history and allergies with no contraindications. INR and Plt counts within acceptable range. 5 fr PICC line inserted via left basilic vein using [employer] US and Tip Location System. Sterile technique with maximum barrier precautions utilized. Blood return obtained from each of the 3 lumens and each flushed easily with NS using proper technique. PICC secured with Stat-lock; biodisc and occlusive dressing applied. Stat portable chest x-ray obtained for PICC tip placement. *Baseline Arm Circumference 37 cm. Internal length 47 cm. External length 1 cm. PICC lot #[id number] Addendum: 05/25/19 at 1538 by ZO WALLACE RN Initial chest xray showed PICC line residing in contralateral subclavian vein. PICC line exchanged over wire using sterile technique and readjusted. Pending repeat chest xray results to confirm placement. Addendum: 05/25/19 at 1539 by ZO WALLACE RN New PICC line trimmed to 49 cm. External length 0 cm.
[2019-05-25] MEDS: SODIUM BICARBONATE 50ML VIAL 50 ML in SOD CHL 0.45% 1,000 ML IV SCH (15:00)
--- NOTE | 2019-05-25 16:15 | NUR ---
Respiratory note: NOTED HIGH PEAK PRESSURES DURING VENT CHECK AND I/E WHEEZING WITH NO CHANGES AFTER MEDNEB TX. CALLED TO NOTIFY DR GUEVARA. ORDERS GIVEN, WILL CARRY OUT. NOTIFIED SHANE GORDON.
--- NOTE | 2019-05-25 16:30 | NUR ---
Okay to use PICC line Xray completed and reviewed. Okay to use PICC line.
--- NOTE | 2019-05-25 17:15 | NUR ---
SEDATION Diprivan increased to 20mcg and Versed increased to 15mg.
--- NOTE | 2019-05-25 18:20 | NUR ---
DATA TECHNICAL LEAD Paged out to Espinoza Campa ans spoke to him regarding patient has high PIP pressures and alarming ventilator, Maxed out on sedation gtt's and heart rate in the 140's. New orders received, this RN to input into system. Per Espinoza if patients CO2 is 60 or above will paralyze patient. Addendum: 05/25/19 at 1845 by EVAN SANTIZO RN RT Camille avitia
[2019-05-25] MEDS ORDERED: SODIUM CHLORIDE 0.9% 500 ML IV ONE (19:30)
--- NOTE | 2019-05-25 20:00 | NUR ---
pt. receiving 500ml ns bolus as per rx.
[2019-05-25] MEDS: SODIUM CHLOR 0.9% PF (SALINE LOCK) 10ML VIAL/SYR IV SCH (22:19)
[2019-05-26] VITALS (107 sets, daily range): BP systolic 87–130; BP diastolic 34–74
--- NOTE | 2019-05-26 00:35 | NUR ---
COMPLETE BED BATH WITH CHG WIPES AND FULL LINEN CHANGE PROVIDED; PT. TOLERATED WELL; WILL CONT. TO MONITOR.
[2019-05-26] MEDS: InsuLIN REG 1unit/0.01ml Soln (100units/ml) SC SCH ×5 (00:36→23:47)
[2019-05-26] MEDS: ACCU-CHEK COMFORT CURVE STRIP VI SCH ×5 (00:36→23:47)
--- NOTE | 2019-05-26 01:25 | NUR ---
patient desating to 76%; not pulling volumes; labored breathing; max on all three sedation (fentanyl gtt, versed gtt, & propofol gtt); suctioned pt. and no secretions; audible leak from cuff and added 1ml of air to cuff-no change in resp. status; RT PAGED TO COME TO BEDSIDE; PREPARING TO BAG PATIENT-SATS SUDDENLY CAME UP TO 94%, BUT CONT. NOT TO PULL VOLUMES; WILL START ATRACURIUM GTT PER DR. PAIGE
[2019-05-26] MEDS: ALBUTEROL SULF 2.5 MG/0.5ML(0.5%) NEB SOLN NEB SCH ×6 (01:34→22:04)
[2019-05-26] MEDS: IPRATROPIUM BROM 0.5 MG/2.5ML INH SOL NEB SCH ×6 (01:34→22:04)
[2019-05-26] MEDS: ATRACURIUM BESYLATE 1,000 MG in D5W 5% 150 ML IV SCH ×2 (01:40→11:02)
--- NOTE | 2019-05-26 01:40 | NUR ---
ATRACURIUM GTT STARTED AND TOF BEFORE PARALYTIC IS LEVEL 7 4/4-PT. HEAVILY SEDATED; RT AT BEDSIDE.
--- NOTE | 2019-05-26 04:00 | NUR ---
TOF= LEVEL 9 09/15; WILL CONT. TO MONITOR.
[2019-05-26] MEDS: SODIUM BICARBONATE 50ML VIAL 50 ML in SOD CHL 0.45% 1,000 ML IV SCH (04:15)
[2019-05-26] MEDS: IPRATROPIUM BROM 0.5 MG/2.5ML INH SOL NEB PRN ×2 (04:39→16:41)
[2019-05-26] MEDS: ALBUTEROL SULF 2.5 MG/0.5ML(0.5%) NEB SOLN NEB PRN ×2 (04:39→16:41)
[2019-05-26 04:51] LABS: Basophils # (auto) 0 uL; Basophils % (auto) 0.1 % (0.0-2.0); Eosinophils # (auto) 0 uL; Hematocrit 30.9 % (36.0-46.0); Hemoglobin 10.4 g/dL (12.2-16.2); Lymphocytes # (auto) 0.5 uL; Mean Corpuscular Hemoglobin 32.1 pg (28.0-32.0); Mean Corpuscular Hgb Conc. 33.6 g/dL (32.0-36.0); Mean Corpuscular Volume 95.7 fL (80.0-100.0); Monocytes # (auto) 0.6 uL; Neutrophils # (auto) 17.3 uL; Neutrophils % (auto) 93.9 % (37.0-80.0); Platelet Count (auto) 271 10^3/uL (140-450); Red Blood Cells 3.23 10^6/uL (4.0-5.20); Red Cell Distribution Width 14.6 % (11.8-14.3); White Blood Cell 18.4 10^3/uL (4.4-10.8)
[2019-05-26 05:11] LABS: Albumin 3.1 g/dL (3.4-5.0); BUN/Creatinine Ratio 19.1; Calcium 6.6 mg/dL (8.5-10.1); Magnesium 2.6 mg/dL (1.6-2.6); Potassium 3.6 mmol/L (3.5-5.1)
[2019-05-26 05:16] LABS: Bilirubin, Total 0.2 mg/dL (0.2-1.0); Total Protein 6.4 g/dL (6.4-8.2)
[2019-05-26] MEDS: methylPREDNISolone SOD SUCC 125 MG/2 ML VL IV SCH ×4 (06:15→22:15)
[2019-05-26] MEDS ORDERED: ALBUTEROL SULF 2.5 MG/0.5ML(0.5%) NEB SOLN NEB ONE (06:45)
[2019-05-26] MEDS ORDERED: ALBUTEROL SULF 2.5 MG/0.5ML(0.5%) NEB SOLN ONE (06:46)
--- NOTE | 2019-05-26 07:20 | NUR ---
Respiratory note: RECEIVED PATIENT ON V15 ESPRIT VENT ORALLY INTUBATED WITH AN 8.0 ETT SECURED VIA NIURKA AT THE 24CM MARKING AT THE LIP, AND MECHANICALLY VENTILATED WITH THE CHARTED SETTINGS. SKIN WARM/DRY TO THE TOUCH AND IS INTACT NEAR NIURKA SITE. THERE IS A NGT PLACED IN THE RIGHT NARE AND SECURED TO THE NOSE. A PICC LINE IS PLACED IN THE LEFT UPPER ARM; NO OTHER ADVANCE ACCESS LINES NOTED. PITTING EDEMA NOTED IN ALL 4 EXTREMITIES. LEG SEQUENTIALS ARE IN PLACE AND OPERATIONAL. AM CXR ASSESSED AND IT SHOWS ETT HIGH SITTING APPROX 6CM ABOVE THE APARNA, ETT ADVANCED 2CM AND RESECURED AT THE 26CM MARKING AT THE LIP. SHANE RODRIGUEZ AND SHANE MATHIS MADE AWARE OF CHANGE. PATIENT BEGAN PEAK PRESSURING AND VOLUMES DECREASED TO 50ML'S, SPO2 DROPPED FROM HIGH 90'S, TO MID 80'S, AND DOWN TO THE LOWEST AT 54%. SHE WAS TAKEN OFF VENTILATOR AND BAGGED VIA AMBU-BAG ON 100% FIO2 WHEN SATS DROPPED INTO THE 80'S. PATIENT WAS BAGGED FROM 0615 UNTIL 0705. Q6 MED-NEB TX WAS BAGGED IN WITH NO CHANGE. PATIENTS PEAK PRESSURES REMAINED 55-65 DURING MANUAL VENTILATION WITH LUNG SOUNDS SEVERE COARSE WHEEZES IN ALL LUNG CARDENAS. SHANE RODRIGUEZ INCREASED ATRICURIUM PARALYTIC WITH NO CHANGE IN EASE TO VENTILATE PATIENT. A 20MG ALBUTEROL TX WAS ORDERED BY DR. GUEVARA AND STARTED AT APPROX 0650, BEING BAGGED IN UNTIL 0705. AT 0705 PATIENT WAS PLACED BACK ON VENTILATOR WITH ALL PREVIOUSLY ORDERED SETTINGS. PEAK PRESSURES REMAINED 55-58 BUT VOLUMES WERE ACHIEVED AND RANGED FROM 460-490ML. LUNG SOUNDS REMAIN SEVERE COARSE WHEEZES T/O. PATIENT IS UNRESPONSIVE TO ALL STIMULI AND IS SEDATED ON PROPOFOL, VERSED, AND FENTANYL DRIPS WELL PARALYZED ON AN ATRICURIUM DRIP. PATIENT IS TOLERATING VENT WELL BUT DOES CONTINUE TO HIGH PRESSURE. VENT PLUGGED INTO RED OUTLET AND ALL ALARMS ARE SET AND AUDIBLE. WILL CONTINUE TO ASSESS PATIENT WELL VENTILATOR FUNCTION.
--- NOTE | 2019-05-26 07:21 | NUR ---
Respiratory note: PATIENT BEGAN PEAK PRESSURING AND VOLUMES DECREASED TO 50ML'S, SPO2 DROPPED FROM HIGH 90'S, TO MID 80'S, AND DOWN TO THE LOWEST AT 54%. SHE WAS TAKEN OFF VENTILATOR AND BAGGED VIA AMBU-BAG ON 100% FIO2 WHEN SATS DROPPED INTO THE 80'S. PATIENT WAS BAGGED FROM 0615 UNTIL 07. Q6 MED-NEB TX WAS BAGGED IN WITH NO CHANGE. PATIENTS PEAK PRESSURES REMAINED 55-65 DURING MANUAL VENTILATION WITH LUNG SOUNDS SEVERE COARSE WHEEZES IN ALL LUNG CARDENAS. RN MICHAEL INCREASED ATRICURIUM PARALYTIC WITH NO CHANGE IN EASE TO VENTILATE PATIENT. A 20MG ALBUTEROL TX WAS ORDERED BY DR. GUEVARA AND STARTED AT APPROX 0650, BEING BAGGED IN UNTIL 07. AT 0705 PATIENT WAS PLACED BACK ON VENTILATOR WITH ALL PREVIOUSLY ORDERED SETTINGS. PEAK PRESSURES REMAINED 55-58 BUT VOLUMES WERE ACHIEVED AND RANGED FROM 460-490ML. LUNG SOUNDS REMAIN SEVERE COARSE WHEEZES T/O.
--- NOTE | 2019-05-26 07:57 | NUR ---
ATRACURIUM TITRATED DOWN PER PROTOCOL AND IS AT 8MCG/KG/MIN DUE TO TOF 0/4. WILL REASSESS IN 15 MINS PER PROTOCOL.
[2019-05-26] MEDS: MIDAZOLAM DRIP 50 mg/50mL 50 ML IV SCH ×2 (08:00→16:46)
--- NOTE | 2019-05-26 08:12 | NUR ---
TOF 0/4 LOWERED ATRACURIUM TO 6MCG/KG/MIN PER PROTOCOL
--- NOTE | 2019-05-26 08:27 | NUR ---
TOF 0/4, REDUCED ATRACURIUM TO 4 MCG/KG/MIN PER PROTOCOL.
--- NOTE | 2019-05-26 08:37 | NUR ---
Assessment Pt is a 38 yr old intubated female. SW called pt's sister, Rossy, at [phone] to ask her questions about pt. Prior to admit, pt lives with her parents, is ambulatory and independent with ADL's, cooking and cleaning. Pt uses a nebulizer often due to her asthma. Pt diagnosed with heart failure over 10 years ago but has had time to adjust and accept diagnosis and tends to be in general good mood. Pt has good support system with her immediate family. Pt is considered permanently disabled and receives disability income. Pt's sister expressed that the pt might need IHSS upon d/c. No other needs or concerns were expressed presently. SW will further assess for pt's needs closer to d/c. Addendum: 05/26/19 at 0940 by ANDRESSA MCCLELLAND Amended: Links added.
--- NOTE | 2019-05-26 08:50 | NUR ---
Respiratory note: VENT CHANGES: VT DECREASED TO 450 AT THIS TIME PER DR. GUEVARA'S ORDER. ABG TO FOLLOW IN 1HR. SHANE MATHIS MADE AWARE OF CHANGE.
[2019-05-26] MEDS: cefTRIAXone 1GM/50ML D5W 50 ML IV SCH (09:17)
--- NOTE | 2019-05-26 09:21 | NUR ---
TOF 1/4 CONTINUE ATRACURIUM AT 4 MCG/KG/MIN
[2019-05-26] MEDS: FAMOTIDINE (10MG/ML) 2ML VL IV SCH ×2 (09:28→22:15)
[2019-05-26] MEDS: ENOXAPARIN SOD 40 MG/0.4 ML SYRINGE SC SCH (09:31)
--- NOTE | 2019-05-26 10:00 | NUR ---
TOF 2/4, INCREASED ATRACURIUM TO 6MCG/KG/MIN FOR GOAL OF 1/4 TOF PER PROTOCOL AND INCREASED
[2019-05-26] MEDS: SODIUM CHLOR 0.9% PF (SALINE LOCK) 10ML VIAL/SYR IV SCH ×2 (10:03→22:15)
[2019-05-26] MEDS: PROPOFOL 100 ML IV SCH ×3 (10:03→16:47)
[2019-05-26] MEDS: AZITHROMYCIN 500MG/ 250ML 250 ML IV SCH (10:07)
[2019-05-26] MEDS: BUDESONIDE (INHALATION) 0.5 MG/2 ML NEB NEB SCH ×2 (10:13→18:01)
--- NOTE | 2019-05-26 10:15 | NUR ---
TOF 1/4, CONTINUE ATRACURIUM AT 6 MCG/KG/MIN
[2019-05-26] MEDS: fentaNYL Drip 2500mCg/250mlNS 250 ML IV SCH ×2 (11:03→16:48)
--- NOTE | 2019-05-26 12:00 | NUR ---
WOUND CARE NOTE: IN TO ASSESS PATIENT'S SKIN INTEGRITY AT THIS TIME. PATIENT ADMITTED TO [facility] WITH DIAGNOSIS OF ACUTE RESPIRATORY FAILURE. CURRENT ESHA SCORE IS 12. SHE IS INTUBATED, SEDATED. PATIENT HAS INTACT ABRASION TO THE LEFT BACK, LEFT OPEN TO AIR. ALL BONY PROMINENCES ARE PINK, BLANCHABLE. WOUND PHOTO TAKEN AT THIS TIME FOR REFERENCE. RECOMMEND: FREQUENT TURN SCHEDULE Q 2 HOURS, PRN CONDITION PERMITS, WITH PRESSURE REDISTRIBUTE PRESSURE POINTS USING PILLOWS/WEDGES, BID/PRN APPLICATION WITH MOISTURE BARRIER CREAM, OPTIFOAM GENTLE SACRAL DRESSING, SKIN/WOUND CARE PLAN, DIETARY CONSULT FOR LOW ESHA, CONTINUED MONITORING BY WOUND CARE TEAM. Addendum: 05/26/19 at 1708 by Deya Goldstein RN Amended: Links added.
[2019-05-26] MEDS ORDERED: SODIUM BICARBONATE 50ML VIAL 50 ML in SOD CHL 0.45% 1,000 ML IV SCH (12:45)
[2019-05-26] MEDS ORDERED: FUROSEMIDE 20 MG/2 ML VIAL IV ONE (12:45)
--- NOTE | 2019-05-26 14:00 | NUR ---
TOF 08/15, ATRACURIUM REMAINS AT 6MCG/KG/MIN
[2019-05-26] MEDS ORDERED: LEVO175T31 PO (14:22)
--- NOTE | 2019-05-26 14:26 | NUR ---
PAGED DR GUEVARA REGARDING HOME DOSE OF LEVOTHYROXINE, ALSO PLACED IN MED REC.
--- NOTE | 2019-05-26 16:30 | NUR ---
DR GUEVARA CALLED BACK, HOME MEDICATION DOSE OF LEVOTHYROXINE ORDERED.
[2019-05-26] MEDS: LEVOTHYROXINE SODIUM 100 MCG/5 ML INJ IV SCH (16:36)
--- NOTE | 2019-05-26 16:42 | NUR ---
Respiratory note: PATIENT PEAK PRESSURING AND HAD LOSS OF VOLUMES. VOLUMES DECREASED TO 30-50ML AND PATIENT HAD A DESATURATION DOWN TO 82% AND ETCO2 INCREASED TO 62. PATIENT WAS TAKEN OFF VENTILATOR AND MANUALLY VENTILATED VIA AMBU-BAG ON 100% FIO2. PATIENT WAS BAGGED FOR APPROX 4MIN AND SPO2 INCREASED TO 100%, AND ETCO2 DECREASED TO 43. PATIENT WAS PLACED BACK ON VENTILATOR WITH ALL PREVIOUSLY ORDERED SETTINGS. PRN MED-NEB TX ADMINISTERED INLINE AT THIS TIME FOR SEVERE BRONCHOSPASM. LUNG SOUNDS TIGHT WHEEZES IN APICES AND COARSE WHEEZES IN BASE. SHANE MATHIS AT BEDSIDE AND AWARE OF PATIENTS CONDITION AND ALL INTERVENTIONS TAKEN.
[2019-05-26] MEDS: Jevity 1.2 Cal/Fiber 1 Liter GT SCH (16:48)
--- NOTE | 2019-05-26 18:00 | NUR ---
TOF 1/, ATRACURIUM REMAINS 6 MCG/KG/MIN
--- NOTE | 2019-05-26 20:00 | NUR ---
WHILE ASSESSING MY PATIENT-JUST THE MOVEMENT OF ONE OF HER ARMS TRIGGERED AN INCREASE OF CO2 TO HIGH 40'S AND VOLUMES TO DROP LESS THAN 350; PT. TO UNSTABLE TO TURN AT THIS TIME AND WILL REASSESS UPON NEXT TURN TIME; TOF= 2/4 AT LEVEL 9; SEE INTERVENTIONS FOR ASSESSMENT; SEE IV SPREADSHEET FOR GTTS; WILL CONT. TO MONITOR.
--- NOTE | 2019-05-26 21:00 | NUR ---
SEDATION VACATION NOT PERFORMED NOT APPROPRIATE AT THIS TIME; PT. INTUBATED/SEDATED/ON PARALYTIC GTT; WILL CONT. TO MONITOR.
--- NOTE | 2019-05-26 23:00 | NUR ---
levophed gtt off; will cont. to monitor.
[2019-05-27] VITALS (104 sets, daily range): BP systolic 96–134; BP diastolic 47–86
[2019-05-27] MEDS: ALBUTEROL SULF 2.5 MG/0.5ML(0.5%) NEB SOLN NEB PRN (00:30)
--- NOTE | 2019-05-27 00:54 | NUR ---
PT. STARTED DESATING AT 23:56 TO 87%; SUCTIONED PT. VIA OROPHARYNX AND SATS CAME UP TO 97%; PT. SHORTLY AFTER HAD ANOTHER EPISODE WHERE SHE DESAT TO 89%; RT PAGED; SUCTIONED PT. AGAIN BOTH VIA ETT AND OROPHARYNX; PT. SATS CAME UP TO 96%; PT. THEN STARTED HAVING INCREASED PEAK PRESSURES, INCREASED CO2 TO 45, AND DECREASED VOLUMES TO <350ML; S/W RT AND WILL BE COMING TO BEDSIDE; 00:20 RT AT BEDSIDE AND PROVIDING MED NEB AND MANAGING PT. VENTILATION; 00:54 PT. FINALLY VENTILATING WNL, HAVING DECREASED PEAK PRESSURES TO 30, VOLUMES >350, AND INCREASED OXYGEN TO 50% PT. CONT. TO DROP SATS TO 90-91%; WILL CONT. TO MONITOR.
[2019-05-27] MEDS: NOREPINEPHRINE 8 MG/250ML KIT 250 ML IV SCH (01:00)
--- NOTE | 2019-05-27 04:00 | NUR ---
TOF= 2/4 AT LEVEL 9; WILL CONT. TO MONITOR.
[2019-05-27 04:28] LABS: Basophils # (auto) 0 uL; Basophils % (auto) 0.1 % (0.0-2.0); Eosinophils # (auto) 0 uL; Hematocrit 27.7 % (36.0-46.0); Hemoglobin 9.3 g/dL (12.2-16.2); Lymphocytes # (auto) 0.4 uL; Lymphocytes % (auto) 2.7 % (10.0-50.0); Mean Corpuscular Hemoglobin 32.1 pg (28.0-32.0); Mean Corpuscular Hgb Conc. 33.6 g/dL (32.0-36.0); Mean Corpuscular Volume 95.6 fL (80.0-100.0); Monocytes # (auto) 0.6 uL; Neutrophils # (auto) 14.4 uL; Neutrophils % (auto) 93.2 % (37.0-80.0); Nucleated Red Blood Cells % 0.1 %; Platelet Count (auto) 232 10^3/uL (140-450); Red Cell Distribution Width 14.4 % (11.8-14.3); White Blood Cell 15.4 10^3/uL (4.4-10.8)
[2019-05-27 04:46] LABS: BUN/Creatinine Ratio 22.7; Calcium 6.4 mg/dL (8.5-10.1); Magnesium 2.6 mg/dL (1.6-2.6); Potassium 3.6 mmol/L (3.5-5.1)
[2019-05-27] MEDS: methylPREDNISolone SOD SUCC 125 MG/2 ML VL IV SCH ×3 (06:00→21:24)
[2019-05-27] MEDS: ACCU-CHEK COMFORT CURVE STRIP VI SCH ×3 (06:00→18:10)
[2019-05-27] MEDS: InsuLIN REG 1unit/0.01ml Soln (100units/ml) SC SCH ×3 (06:00→18:15)
[2019-05-27] MEDS: ALBUTEROL SULF 2.5 MG/0.5ML(0.5%) NEB SOLN NEB SCH ×5 (06:13→21:56)
[2019-05-27] MEDS: IPRATROPIUM BROM 0.5 MG/2.5ML INH SOL NEB SCH ×5 (06:13→21:57)
--- NOTE | 2019-05-27 08:00 | NUR ---
TOF=0/4; DECREASED PARALYTIC GTT AND WILL MONITOR; SEE IV SPREADSHEET.
[2019-05-27] MEDS: cefTRIAXone 1GM/50ML D5W 50 ML IV SCH (08:49)
--- NOTE | 2019-05-27 09:00 | NUR ---
TOF= 2/4 AT LEVEL 9; WILL CONT. TO MONITOR.
--- NOTE | 2019-05-27 09:16 | NUR ---
UPDATED MOM AND DAD AT BEDSIDE ON PLAN OF CARE.
[2019-05-27] MEDS: FAMOTIDINE (10MG/ML) 2ML VL IV SCH ×2 (10:00→21:24)
[2019-05-27] MEDS: ENOXAPARIN SOD 40 MG/0.4 ML SYRINGE SC SCH (10:00)
[2019-05-27] MEDS: SODIUM CHLOR 0.9% PF (SALINE LOCK) 10ML VIAL/SYR IV SCH ×2 (10:00→21:24)
[2019-05-27] MEDS: LEVOTHYROXINE SODIUM 100 MCG/5 ML INJ IV SCH (10:00)
[2019-05-27] MEDS: AZITHROMYCIN 500MG/ 250ML 250 ML IV SCH (10:00)
[2019-05-27] MEDS: BUDESONIDE (INHALATION) 0.5 MG/2 ML NEB NEB SCH ×2 (10:02→22:22)
[2019-05-27] MEDS: ATRACURIUM BESYLATE 1,000 MG in D5W 5% 150 ML IV SCH (10:05)
--- NOTE | 2019-05-27 11:11 | NUR ---
NUTRITION CONSULT/ASSESSMENT NOTES Please refer to link notes of nutrition screen form filed under the intervention section of the plan of care for further details. Est. Needs: 1550 kcal to 2100 kcal (15-20 kcal/kgBW), 57 gms to 68 gms pro (1.0-1.2 gms/kgIBW: 57 kg). Will continue to monitor pertinent labs and reassess nutrient need prn Thank you for this consult. Addendum: 05/27/19 at [address] Amended: Links added.
--- NOTE | 2019-05-27 12:13 | NUR ---
REPORT GIVEN TO SHANE ABRAHAM.
--- NOTE | 2019-05-27 12:20 | NUR ---
REPORT/ASSESSMENT REPORT REC'D FROM [facility]. ASSESSMENT DONE. PT IS NONRESPONSIVE TO ALL STIMULI AND REFLEXES. CURRENT SEDATION IS: VERSED AT 15MG/HR, FENTANYL AT 200MCG/HR, PROPOFOL AT 50MCG/KG/M, TRACRIUM AT 7MCG. PER REPORT LAST TOF WAS 1/4. PUPILS EQUAL AT 3MM AND BRISK. ORALLY INTUBATED WITH 8.0 ETT/26 AT LIP VENT SETTINGS: AC 20, VT 450, FIO2 40% (RT RECENTLY LOWERED), PEEP 5. FAIR AMT THICK WHITE SECRETIONS. NG SECURE RT NARE, SECURED AT 60CM. CURRENTLY CLAMPED, WILL ASK PMD FOR TUBE FEEDINGS. SR ON MONITOR, BP STABLE.SKIN: INTACT HAS ABRASION ONMID BACK, CLEAN DRY, MINIMAL REDNESS. ABLE TO BE TURNED TO LT WITHOUT INCREASE IN CO2.
[2019-05-27] MEDS ORDERED: Jevity 1.2 Cal/Fiber 1 Liter GT SCH (12:45)
[2019-05-27] MEDS ORDERED: FUROSEMIDE 20 MG/2 ML VIAL IV ONE (12:45)
[2019-05-27] MEDS ORDERED: FUROSEMIDE 20 MG/2 ML VIAL ONE (12:47)
[2019-05-27] MEDS ORDERED: LEVOTHYROXINE SODIUM 50 MCG TAB PO ONE (13:00)
--- NOTE | 2019-05-27 14:00 | NUR ---
TOF DONE. USING 8 ON POWER WHEEL, 0/4. TRACRIUM DECREASED.
--- NOTE | 2019-05-27 14:30 | NUR ---
JEVITY TUBE FEEDING STARTED AT 30ML/HR
[2019-05-27] MEDS: MIDAZOLAM DRIP 50 mg/50mL 50 ML IV SCH ×2 (14:40→19:21)
[2019-05-27] MEDS: PROPOFOL 100 ML IV SCH ×3 (14:40→23:59)
--- NOTE | 2019-05-27 15:00 | NUR ---
TOF DONE. USING 7 ON POWER WHEEL, 0/4. TRACRIUM DECREASED
--- NOTE | 2019-05-27 16:00 | NUR ---
TOF DONE. USING 7 ON POWER WHEEL, 0/4. TRACRIUM DECREASED
--- NOTE | 2019-05-27 17:00 | NUR ---
TOF DONE USING 10 ON POWER WHEEL 09/15. TRACRIUM REMAINS AT CURRENT DOSE OF 4MCG
--- NOTE | 2019-05-27 18:00 | NUR ---
MARK FEEDING WELL, NO RESIDUAL
--- NOTE | 2019-05-27 20:00 | NUR ---
OPEN ASSUMED CARE OF FEMALE PT ORALLY INTUBATED. PT SEDATED ON DIPRIVAN GTT 50 MCG/KG/MIN, FENTANYL GTT 200 MCG/HR, AND VERSED GTT 15 MG/HR. PT ON PARALYTIC/TRACRIUM GTT AT 4 MCG/KG/MIN. WITH 2/4 TWITCHES. PT WITH NO COUGH OR GAG. SR ON FUR DYER. L. UPPER ARM PICC LINE IN PLACE ALL PORTS PATENT. NGT TO R. NARE WITH JEVITY FEEDING INFUSING AT 30 ML/HR. PLACEMENT VERIFIED. NO TUBE FEED RESIDUAL. 22 G IV TO R. HAND S/L, 20 G IV TO L. HAND S/L B &P. MACIEL TO GRAVITY DRAINING CLEAR YELLOW URINE. PT OBSERVED TO HAVE MOD AMOUNT OF FOUL SMELLING VAGINAL DISCHARGE. BRANDON CARE PROVIDED. JAQUELINE SCD'S IN PLACE. NO INDICATIO OF PAIN OBSERVED. BED IN LOWEST LOCKED POSITION. HOB ELEVATED 40 DEGREES. ABRASION OPEN TO AIR OBSERVED TO PT BACK. PT REPOSITIONED WITH PILLOWS USED TO OFFLOAD BONY PROMINENCES. PT IN FULL VIEW OF RN STATION. WILL CONTINUE TO MONITOR.
--- NOTE | 2019-05-27 20:00 | NUR ---
T.O.F. PT 2/4 ON TRACRIUM GTT 4 MCG/KG/MIN
--- NOTE | 2019-05-27 20:55 | NUR ---
FAMILY VISIT PT MOTHER, AND FATHER TO UNIT FOR VISIT. UPDATED REGARDING CURRENT CONDITION. ALL QUESTIONS AND CONCERNS ADDRESSED.
--- NOTE | 2019-05-27 22:27 | NUR ---
RESP/T.O.F. PT DESATURATED TO 68% FIO2 AND NOT APPEARING TO GET TIDAL VOLUMES ON VENT. R.T. PAGED. BAGGED PT. CHANGED HME. T.O.F. EVALUATED 3/4 TWITCHES. TRACRIUM GTT INCREASED PER PROTOCOL. PT PLACED BACK ON VENT. SATURATIONS 94% PT GETTING TIDAL VOLUMES ON VENT. WILL CONTINUE TO MONITOR.
[2019-05-28] VITALS (103 sets, daily range): BP systolic 106–136; BP diastolic 62–85
--- NOTE | 2019-05-28 | NUR ---
T.O.F. TOF 2/4 ON TRACRIUM 6 MCG/KG/MIN. WILL CONTINUE TO MONITOR.
[2019-05-28] MEDS: InsuLIN REG 1unit/0.01ml Soln (100units/ml) SC SCH ×4 (00:05→18:13)
[2019-05-28] MEDS: ACCU-CHEK COMFORT CURVE STRIP VI SCH ×4 (00:05→18:13)
[2019-05-28] MEDS: NOREPINEPHRINE 8 MG/250ML KIT 250 ML IV SCH (01:00)
[2019-05-28] MEDS: IPRATROPIUM BROM 0.5 MG/2.5ML INH SOL NEB SCH ×6 (02:09→22:11)
[2019-05-28] MEDS: ALBUTEROL SULF 2.5 MG/0.5ML(0.5%) NEB SOLN NEB SCH ×6 (02:09→22:11)
--- NOTE | 2019-05-28 02:14 | NUR ---
Respiratory note: FIO2 TITRATED TO 30%.
--- NOTE | 2019-05-28 03:00 | NUR ---
Patient bathe/linen change/MONITORING AND EVALUATION ADVISOR Patient given complete bath. Skin integrity assessed for any changes. Linens changed. Patient repositioned for comfort. AFTER SEVERAL CLEANINGS TO BRANDON AREA PT STILL OBSERVED TO BE HAVING MOD YELLOW THIN FOUL SMELLING DISCHARGE COMING FROM THE VAGINA. AREA CLEANSED WITH WARM SOAPY WATER AND PAT DRY.
[2019-05-28] MEDS: PROPOFOL 100 ML IV SCH ×6 (03:19→20:13)
[2019-05-28] MEDS: MIDAZOLAM DRIP 50 mg/50mL 50 ML IV SCH ×5 (03:20→20:02)
[2019-05-28 03:54] LABS: Basophils # (auto) 0 uL; Eosinophils # (auto) 0 uL; Hematocrit 29.5 % (36.0-46.0); Lymphocytes # (auto) 0.5 uL; Lymphocytes % (auto) 3.3 % (10.0-50.0); Mean Corpuscular Hemoglobin 32.2 pg (28.0-32.0); Mean Corpuscular Hgb Conc. 33.7 g/dL (32.0-36.0); Mean Corpuscular Volume 95.5 fL (80.0-100.0); Monocytes # (auto) 0.6 uL; Neutrophils # (auto) 13.1 uL; Neutrophils % (auto) 92.7 % (37.0-80.0); Nucleated Red Blood Cells % 0.1 %; Platelet Count (auto) 231 10^3/uL (140-450); Red Blood Cells 3.09 10^6/uL (4.0-5.20); White Blood Cell 14.2 10^3/uL (4.4-10.8)
[2019-05-28 04:11] LABS: BUN/Creatinine Ratio 28.6; Calcium 6.9 mg/dL (8.5-10.1); Potassium 3.5 mmol/L (3.5-5.1)
[2019-05-28] MEDS ORDERED: POTASSIUM CHL 20MEQ/100ML 100 ML IV ONE (05:45)
[2019-05-28] MEDS: methylPREDNISolone SOD SUCC 125 MG/2 ML VL IV SCH ×4 (05:56→22:14)
[2019-05-28] MEDS: LEVOTHYROXINE SODIUM 50 MCG TAB PO SCH (05:57)
[2019-05-28] MEDS: fentaNYL Drip 2500mCg/250mlNS 250 ML IV SCH ×2 (06:12→17:07)
[2019-05-28] MEDS: BUDESONIDE (INHALATION) 0.5 MG/2 ML NEB NEB SCH ×2 (06:43→22:11)
--- NOTE | 2019-05-28 08:00 | NUR ---
OPENING NOTE Received patient on mechanical ventilator sedated on Versed at 15mg, Diprivan at 50mcg and Fentanyl at 200mcg and paralytic Tracrium at 6 mcg/kg. Patient has no gag/cough reflex, pupils sluggish to light, does not follow commands, does not respond to tactile/verbal stimuli. Sinus rhythm in the 80's on bedside monitor, pulses palpable on upper/lower extremities with generalized edema observed. NG tube checked and verified via air bolus with zero residuals aspirated. Abdomen soft, non tender, non distended with hypoactive bowel sounds and unknown last bowel movement. Luther catheter draining to gravity draining light sola/greenish urine. Skin intact other than an abrasion to the left upper back with Optifoam (clean, dry and intact). PICC line to the left upper arm (TLC): good blood return and flushes easily. IV to the right hand 22g and left hand 20g. Will continue to monitor patient closely. Call light within reach and bed at lowest position.
[2019-05-28] MEDS: cefTRIAXone 1GM/50ML D5W 50 ML IV SCH (09:05)
[2019-05-28] MEDS: SODIUM CHLOR 0.9% PF (SALINE LOCK) 10ML VIAL/SYR IV SCH ×2 (10:18→22:14)
[2019-05-28] MEDS: AZITHROMYCIN 500MG/ 250ML 250 ML IV SCH (10:18)
[2019-05-28] MEDS: ENOXAPARIN SOD 40 MG/0.4 ML SYRINGE SC SCH (10:18)
[2019-05-28] MEDS: FAMOTIDINE (10MG/ML) 2ML VL IV SCH ×2 (10:18→22:14)
--- NOTE | 2019-05-28 12:00 | NUR ---
TRAIN OF FOUR TOF 2/4 using power wheel on 7.
--- NOTE | 2019-05-28 12:15 | NUR ---
NUTRITION Patients NG tube checked and verified via air bolus, zero residuals aspirated.
[2019-05-28] MEDS ORDERED: FUROSEMIDE 20 MG/2 ML VIAL IV ONE (13:45)
--- NOTE | 2019-05-28 13:45 | NUR ---
MD Dr. Bashir at bedside updated on patient condition by charge nurse Jillian while this RN at lunch break, Jillian received new orders to titrate Tracrium off.
--- NOTE | 2019-05-28 14:00 | NUR ---
TRACRIUM Tracrium decreased to 4mcg done by charge nurse Jillian during this RN lunch break per MD to discontinue GTT but titrate off.
--- NOTE | 2019-05-28 16:00 | NUR ---
TRAIN OF FOUR TOF 2/4 using power wheel on 7.
--- NOTE | 2019-05-28 16:00 | NUR ---
NUTRITION NG tube checked and verified via air bolus, zero residuals aspirated.
--- NOTE | 2019-05-28 17:00 | NUR ---
TRACRIUM Tracrium decreased to 2 mcg titrating GTT to discontinue.
--- NOTE | 2019-05-28 18:00 | NUR ---
TRACRIUM Tracrium GTT turned off.
--- NOTE | 2019-05-28 19:55 | NUR ---
OPEN ASSUMED CARE OF FEMALE PT ORALLY INTUBATED. PT SEDATED ON DIPRIVAN GTT 50 MCG/KG/MIN, FENTANYL GTT 200 MCG/HR, AND VERSED GTT 15 MG/HR. PT NON RESPONSIVE AT THIS TIME. PT SR ON RECYCLING CREW SUPERVISOR. L. UPPER ARM PICC LINE IN PLACE ALL PORTS PATENT. NGT TO R. NARE WITH JEVITY FEEDING INFUSING AT 30 ML/HR. PLACEMENT VERIFIED. NO TUBE FEED RESIDUAL. 22 G IV TO R. HAND S/L, 20 G IV TO L. HAND S/L B &P. MACIEL TO GRAVITY DRAINING CLEAR YELLOW URINE. PT OBSERVED TO HAVE MOD AMOUNT OF FOUL SMELLING VAGINAL DISCHARGE. BRANDON CARE PROVIDED. JAQUELINE SCD'S IN PLACE. NO INDICATION OF PAIN OBSERVED. BED IN LOWEST LOCKED POSITION. HOB ELEVATED 40 DEGREES. ABRASION TO L. UPPER BACK OBSERVED WITH OPTIFOAM NON ADHERENT DRESSING IN PLACE. PT REPOSITIONED WITH PILLOWS USED TO OFFLOAD BONY PROMINENCES. PT IN FULL VIEW OF RN STATION. WILL CONTINUE TO MONITOR.
--- NOTE | 2019-05-28 21:00 | NUR ---
FAMILY VISIT PT MOTHER AND FATHER TO UNIT FOR VISIT. UPDATED REGARDING PT CONDITION AND PLAN OF CARE. ALL QUESTIONS AND CONCERNS ADDRESSED.
--- NOTE | 2019-05-28 21:30 | NUR ---
ANDREA BOOTS PT SHOWING SOME SIGNS OF FOOT DROP. JAQUELINE ANDREA BOOTS PLACED.
--- NOTE | 2019-05-28 22:35 | NUR ---
Respiratory note: PT PLACED ON HEATED WIRE CIRCUIT, UNEVENTFUL. PT BAGGED WITH 100% FIO2, MASK AT BEDSIDE. VENT SST'D AND PASSED, PT PLACED BACK ON PREVIOUS VENT SETTINGS ON VENT V15.
[2019-05-28] MEDS: Jevity 1.2 Cal/Fiber 1 Liter GT SCH (22:36)
[2019-05-29] VITALS (88 sets, daily range): BP systolic 107–159; BP diastolic 62–101
[2019-05-29] MEDS: ACCU-CHEK COMFORT CURVE STRIP VI SCH ×4 (00:03→18:00)
[2019-05-29] MEDS: InsuLIN REG 1unit/0.01ml Soln (100units/ml) SC SCH ×4 (00:03→18:00)
[2019-05-29] MEDS: MIDAZOLAM DRIP 50 mg/50mL 50 ML IV SCH (00:49)
[2019-05-29] MEDS: NOREPINEPHRINE 8 MG/250ML KIT 250 ML IV SCH (01:00)
[2019-05-29] MEDS: ALBUTEROL SULF 2.5 MG/0.5ML(0.5%) NEB SOLN NEB SCH ×6 (02:18→22:04)
[2019-05-29] MEDS: IPRATROPIUM BROM 0.5 MG/2.5ML INH SOL NEB SCH ×6 (02:19→22:04)
--- NOTE | 2019-05-29 02:30 | NUR ---
Patient bathe/linen change Patient given complete bath. Skin integrity assessed for any changes. Linens changed. Patient repositioned for comfort.
[2019-05-29] MEDS: PROPOFOL 100 ML IV SCH ×3 (02:39→19:59)
[2019-05-29 04:35] LABS: Hematocrit 30.9 % (36.0-46.0); Hemoglobin 10.4 g/dL (12.2-16.2); Mean Corpuscular Hemoglobin 32.3 pg (28.0-32.0); Mean Corpuscular Hgb Conc. 33.5 g/dL (32.0-36.0); Mean Corpuscular Volume 96.5 fL (80.0-100.0); Platelet Count (auto) 224 10^3/uL (140-450); Red Cell Distribution Width 14.6 % (11.8-14.3); White Blood Cell 12.7 10^3/uL (4.4-10.8)
[2019-05-29 04:37] LABS: BUN/Creatinine Ratio 36.4; Potassium 4.2 mmol/L (3.5-5.1)
[2019-05-29 04:48] LABS: Basophils % (manual) 0 (0.0-2.0); Blast Cells 0; Eosinophils % (manual) 0 (0-7); Metamyelocytes % 0; Myelocytes % 0; Promyelocytes % 0; Reactive Lymphocytes 0
[2019-05-29 05:32] LABS: Band Neutrophils % (manual) 10; Lymphocytes % (manual) 5 (10.0-50.0); Monocytes % (manual) 3 (0-12)
[2019-05-29] MEDS: methylPREDNISolone SOD SUCC 125 MG/2 ML VL IV SCH ×3 (05:53→22:19)
[2019-05-29] MEDS ORDERED: LEVOTHYROXINE SODIUM 25 MCG TAB ONE (05:55)
[2019-05-29] MEDS ORDERED: LEVOTHYROXINE SODIUM 100 MCG TAB ONE (05:55)
[2019-05-29] MEDS: LEVOTHYROXINE SODIUM 50 MCG TAB PO SCH (06:05)
--- NOTE | 2019-05-29 08:00 | NUR ---
OPENING SHIFT NOTE REPORT RECEIVED FROM WHIZZER RN, MORNING ASSESSMENT PERFORMED AND DOCUMENTED. 38 YEAR OLD FEMALE, MECHANICALLY VENTILATED, OFF SEDATION FOR CPAP TRAIL THIS MORNING. PATIENT OPENS EYES WHEN CALLED BY NAME BUT UNABLE TO FOLLOW COMMANDS AT THIS TIME. WILL MONITOR PATIENT FOR ALERTNESS WHILE MAINTAINING SAFETY AND COMFORT. IV'S PATENT AND SALINE LOCK, MACIEL CATHETER PATENT AND DRAINING TO GRAVITY. FALL AND SAFETY PRECAUTIONS IN PLACE.
[2019-05-29] MEDS: BUDESONIDE (INHALATION) 0.5 MG/2 ML NEB NEB SCH ×2 (10:03→18:39)
[2019-05-29] MEDS: FAMOTIDINE (10MG/ML) 2ML VL IV SCH ×2 (10:30→22:19)
[2019-05-29] MEDS: cefTRIAXone 1GM/50ML D5W 50 ML IV SCH (10:32)
[2019-05-29] MEDS: AZITHROMYCIN 500MG/ 250ML 250 ML IV SCH (10:35)
[2019-05-29] MEDS: SODIUM CHLOR 0.9% PF (SALINE LOCK) 10ML VIAL/SYR IV SCH ×2 (10:35→22:19)
[2019-05-29] MEDS: ENOXAPARIN SOD 40 MG/0.4 ML SYRINGE SC SCH (10:36)
--- NOTE | 2019-05-29 12:29 | NUR ---
Nutrition Follow-up Notes Wt.: 104.0 kg Pt`s intubated on CPAP trial when rounded this am. per RN pt was tolerating TF well with Jevity 1.2 @ 40 ml.hr. pt is currently off feds and NPO Est. Needs: 1550 kcal to 2100 kcal (15-20 kcal/kgBW), 57 gms to 68 gms pro (1.0-1.2 gms/kgIBW: 57 kg). Will continue to monitor pertinent labs and reassess nutrient need prn Labs: BUN 24 H, GLU 207 H, CA 6.0 L. Skin: Salinas scale 110 high risk, GI: Pt has no BM reported per documentation designer. PES: Increased nutrient needs r/t current/chronic medical/nutritional status aeb intubated, sedated, mod hypoalbuminemia, NPO. Altered nutrition related lab values r/t current/chronic medical condition aeb hyperglycemia, hypocalcemia and mild hypoalbuminemia Will continue to monitor NPO status, skin status, pertinent labs and weight trend. F/u in 2 to 3 days. Rec.: 1.) Resume EN support of Jevity 1.2 Antonio @ 65 ml/hr goal rate as tolerated if off propofol and fails CPAP medically appropriate. 2.) If Albumin level continues trending down, consider Prostat 1 pkt BID. 3.) Advance gradually to oral diet when medically appropriate. 4.) Refer to RD for further nutrition educ. and weight monitoring upon discharge. 5.) Continue current plan of care.
--- NOTE | 2019-05-29 12:30 | NUR ---
HOSPITALIST AT BEDSIDE DR GUEVARA UPDATED ON PATIENT'S STATUS AND PENDING CPAP TRIAL DUE TO PATIENT NOT FULLY AWAKE AND/OR FOLLOWING COMMANDS. DR GUEVARA ALSO AWARE OF NOTED FOUL SMELLING VAGINAL CUBA COLOR DISCHARGE. DR GUEVARA VERBALIZED UNDERSTANDING AND ORDERED STAFF TO CONTINUE MONITORING. REGARDING CPAP, DR GUEVARA STATED OK TO RESTART PROPOFOL IF PATIENT BECOMES AGITATED ONCE SHE IS FULLY AWAKE AND WILL ATTEMPT CPAP TRIAL TOMORROW MORNING. ORDERS RECEIVED AND WILL BE CARRIED OUT.
[2019-05-29] MEDS ORDERED: FUROSEMIDE 20 MG/2 ML VIAL IV ONE (12:45)
[2019-05-29] MEDS ORDERED: POTASSIUM EFFERVESENT TAB 25 MEQ GT ONE (12:45)
--- NOTE | 2019-05-29 13:00 | NUR ---
ELEVATED TEMPERATURE 99.9 STUDENT VVC NURSE PROVIDED COOLING MEASURES, WILL CONTINUE TO MONITOR.
--- NOTE | 2019-05-29 14:00 | NUR ---
TEMP REASSESSMENT CURRENT TEMPT AFTER COOLING MEASURES 99.1 ORALLY, WILL CONTINUE TO MONITOR.
--- NOTE | 2019-05-29 15:00 | NUR ---
PT ASSESSED FOR CPAP TRIAL, PT OFF SEDATION PT OCCASIONALLY OPENS EYES AND FOLLOWS COMMANDS. PT WILL NOT STAY AWAKE. WILL CONTINUE TO MONITOR FOR CPAP TRIAL.
--- NOTE | 2019-05-29 18:35 | NUR ---
RT NOTE RECEIVED PT INTUBATED AND ON VENT V15 ON STATED SETTINGS .VENT IS PLUGGED TO RED OUTLET. ALARMS ARE ON AND AUDIBLE AT NURSES STATION. AMBU BAG AT BEDSIDE AND CONNECTED TO O2 SOURCE. 8.0 ETT IS SECURED WITH ANCHORFAST AT 26 CM TO THE ORAL RIGHT. BILATERAL BS ARE COARSE. PT WAS SUCTIONED FOR SCANT RETURN. HHN GIVEN INLINE WITH 5.0 MG ALBUTEROL, 0.5 MG ATROVENT AND 1 MG PULMICORT WITHOUT ADVERSE REACTION NOTED. PT ON HEATED CIRCUIT WITH CIRCUIT TEMP 36.0, eTcO2 36, POX 96%. Addendum: 05/29/19 at 1946 by Ness Bailey RT Amended: Links added.
--- NOTE | 2019-05-29 18:45 | NUR ---
NEURO ASSESSMENT/END OF SHIFT NOTE PATIENT RESTING IN BED, MECHANICALLY VENTILATED, NO DISTRESS NOTED, RESPIRATIONS EVEN AND UNLABORED. OPENS EYES WHEN CALLED BY NAME BUT UNABLE TO FOLLOW COMMANDS. PATIENT ABLE TO MOVE ALL EXTREMITIES WHEN PROVIDING COMFORT MEASURES BUT FATIGUES EASILY AND FALLS BACK TO SLEEP. PATIENT REMAINS OFF SEDATION AT THIS TIME, FALL AND SAFETY PRECAUTIONS IN PLACE. WILL ENDORSE CONTINUED CARE TO ANCHOR OPERATOR RN.
--- NOTE | 2019-05-29 19:45 | NUR ---
OPEN ASSUMED CARE OF FEMALE PT ORALLY INTUBATED. PT NOT ON SEDATION. PT OPENS EYES. MOVES EXTREMITIES. DOES NOT FOLLOW COMMANDS. SR ON PIPELINE DISPATCHER. NGT TO R. NARE CLAMPED. L UPPER ARM PICC LINE IN PLACE ALL PORTS PATENT. 20 G S/L TO L. F/A, 22 G S/L TO R. HAND B&P. SMALL ABRASION TO L UPPER BACK WITH NON ADHERENT DRESSING IN PLACE. MACIEL TO GRAVITY DRAINING CLOUDY YELLOW URINE. PT WITH MOD. AMOUNT FOUL SMELLING THIN YELLOW VAGINAL DISCHARGE. AREA CLEANSED WITH WARM SOAPY WATER. PAT DRY. JAQUELINE SCD'S IN PLACE. NO INDICATION OF PAIN OBSERVED. BED IN LOWEST LOCKED POSITION. SIDE RAILS UP X 2. HOB ELEVATED 30 DEGREES. PT IN FULL VIEW OF RN STATION. WILL CONTINUE TO MONITOR.
--- NOTE | 2019-05-29 19:59 | NUR ---
AGITATION PT ON VENTILATOR ATTEMPTING TO GET OOB. PROPOFOL RE-STARTED. WILL CONTINUE TO CLOSELY MONITOR.
--- NOTE | 2019-05-29 20:12 | NUR ---
RT NOTE ROUTINE VENT CHECK DONE. PT INTUBATED AND ON VENT V15 ON STATED SETTINGS .VENT IS PLUGGED TO RED OUTLET. ALARMS ARE ON AND AUDIBLE AT NURSES STATION. AMBU BAG AT BEDSIDE AND CONNECTED TO O2 SOURCE. 8.0 ETT IS SECURED WITH ANCHORFAST AT 26 CM TO THE ORAL RIGHT. PT ON HEATED CIRCUIT WITH CIRCUIT TEMP 36.0, eTcO2 30, POX 97% Addendum: 05/29/19 at 2034 by Ness Bailey RT Amended: Links added.
--- NOTE | 2019-05-29 20:15 | NUR ---
REASSESS AGITATION PT NOW RESTING COMFORTABLY ON PROPOFOL 20 MCG/KG/MIN. WILL CONTINUE TO MONITOR.
--- NOTE | 2019-05-29 22:01 | NUR ---
RT NOTE ROUTINE VENT CHECK DONE. PT INTUBATED AND ON VENT V15 ON STATED SETTINGS .VENT IS PLUGGED TO RED OUTLET. ALARMS ARE ON AND AUDIBLE AT NURSES STATION. AMBU BAG AT BEDSIDE AND CONNECTED TO O2 SOURCE. 8.0 ETT IS SECURED WITH ANCHORFAST AT 26 CM TO THE ORAL RIGHT. BREATH SOUNDS ARE COARSE. HHN GIVE INLINE WITH 5.0 MG ALBUTEROL AND 0.5 MG ATROVENT WITHOUT ADVERSE REACTION NOTED. PT WAS SUCTIONED FOR SCANT RETURN. PT ON HEATED CIRCUIT WITH CIRCUIT TEMP 36.0, eTcO2 29, POX 97%. Addendum: 05/29/19 at 2256 by Ness Bailey RT Amended: Links added.
[2019-05-29] MEDS: fentaNYL Drip 2500mCg/250mlNS 250 ML IV SCH (23:42)
[2019-05-30] VITALS (86 sets, daily range): BP systolic 90–151; BP diastolic 54–92
[2019-05-30] MEDS: ACCU-CHEK COMFORT CURVE STRIP VI SCH ×4 (00:07→18:19)
--- NOTE | 2019-05-30 00:07 | NUR ---
RT NOTE ROUTINE VENT CHECK DONE. PT INTUBATED AND ON VENT V15 ON STATED SETTINGS .VENT IS PLUGGED TO RED OUTLET. ALARMS ARE ON AND AUDIBLE AT NURSES STATION. AMBU BAG AT BEDSIDE AND CONNECTED TO O2 SOURCE. 8.0 ETT IS SECURED WITH ANCHORFAST AT 26 CM TO THE ORAL RIGHT. RN CAROLINE JUST SUCTIONED PT FOR MODERATE RETURN. PT ON HEATED CIRCUIT WITH CIRCUIT TEMP 36.0, eTcO2 36, POX 97%. Addendum: 05/30/19 at 0051 by Ness Bailey RT Amended: Links added.
[2019-05-30] MEDS: PROPOFOL 100 ML IV SCH (02:14)
[2019-05-30] MEDS: ALBUTEROL SULF 2.5 MG/0.5ML(0.5%) NEB SOLN NEB SCH ×6 (02:18→22:10)
[2019-05-30] MEDS: IPRATROPIUM BROM 0.5 MG/2.5ML INH SOL NEB SCH ×6 (02:18→22:10)
--- NOTE | 2019-05-30 02:18 | NUR ---
RT NOTE ROUTINE VENT CHECK DONE. PT INTUBATED AND ON VENT V15 ON STATED SETTINGS .VENT IS PLUGGED TO RED OUTLET. ALARMS ARE ON AND AUDIBLE AT NURSES STATION. AMBU BAG AT BEDSIDE AND CONNECTED TO O2 SOURCE. 8.0 ETT IS SECURED WITH ANCHORFAST AT 26 CM TO THE ORAL RIGHT. SHANE VELAZQUEZ AT BEDSIDE FOR BATH, HHN TX HELD AT THIS TIME. PT ON HEATED CIRCUIT WITH CIRCUIT TEMP 35.9, eTcO2 30, POX 97%. Addendum: 05/30/19 at 0245 by Ness Bailey RT Amended: Links added.
--- NOTE | 2019-05-30 02:30 | NUR ---
Patient bathe/linen change Patient given complete bath. HAIR WASHED AND COMBED.Skin integrity assessed for any changes. Linens changed. Patient repositioned for comfort.
--- NOTE | 2019-05-30 04:08 | NUR ---
RT NOTE ROUTINE VENT CHECK DONE. PT INTUBATED AND ON VENT V15 ON STATED SETTINGS. VENT IS PLUGGED TO RED OUTLET. ALARMS ARE ON AND AUDIBLE AT NURSES STATION. AMBU BAG AT BEDSIDE AND CONNECTED TO O2 SOURCE. 8.0 ETT IS SECURED WITH ANCHORFAST AT 26 CM TO THE ORAL RIGHT. INLINE SUCTION CHANGED WITHOUT INCIDENT. PT ON HEATED CIRCUIT WITH CIRCUIT TEMP 35.9, eTcO2 30, POX 97%. Addendum: 05/30/19 at 0423 by Ness Bailey RT Amended: Links added.
[2019-05-30 04:28] LABS: Hematocrit 32.6 % (36.0-46.0); Hemoglobin 10.9 g/dL (12.2-16.2); Mean Corpuscular Hemoglobin 31.9 pg (28.0-32.0); Mean Corpuscular Hgb Conc. 33.4 g/dL (32.0-36.0); Mean Corpuscular Volume 95.5 fL (80.0-100.0); Platelet Count (auto) 268 10^3/uL (140-450); Red Blood Cells 3.41 10^6/uL (4.0-5.20); Red Cell Distribution Width 14.2 % (11.8-14.3); White Blood Cell 12.8 10^3/uL (4.4-10.8)
[2019-05-30 04:35] LABS: Band Neutrophils % (manual) 0; Basophils % (manual) 0 (0.0-2.0); Blast Cells 0; Eosinophils % (manual) 0 (0-7); Metamyelocytes % 0; Myelocytes % 0; Promyelocytes % 0; Reactive Lymphocytes 0
[2019-05-30 04:54] LABS: Potassium 4.2 mmol/L (3.5-5.1)
[2019-05-30] MEDS ORDERED: LEVOTHYROXINE SODIUM 25 MCG TAB ONE (05:12)
[2019-05-30] MEDS ORDERED: LEVOTHYROXINE SODIUM 100 MCG TAB ONE (05:12)
[2019-05-30] MEDS ORDERED: LEVOTHYROXINE SODIUM 50 MCG TAB ONE (05:12)
[2019-05-30] MEDS: InsuLIN REG 1unit/0.01ml Soln (100units/ml) SC SCH ×4 (05:21→18:00)
[2019-05-30] MEDS: methylPREDNISolone SOD SUCC 125 MG/2 ML VL IV SCH ×3 (05:22→22:00)
[2019-05-30 06:03] LABS: Lymphocytes % (manual) 6 (10.0-50.0); Monocytes % (manual) 6 (0-12)
--- NOTE | 2019-05-30 07:20 | NUR ---
OPENING SHIFT NOTE REPORT RECEIVED FROM CUSTOMER SERVICE ASSISTANT RN, MORNING ASSESSMENT PERFORMED AND DOCUMENTED. 38 YEAR OLD FEMALE, MECHANICALLY VENTILATED, OFF SEDATION FOR CPAP TRAIL THIS MORNING. PATIENT OPENS EYES WHEN CALLED BY NAME ABLE TO SQUEEZE NURSE HAND - FATIGUED AND FALLS BACK TO SLEEP. WILL CONTINUE TO MONITOR PATIENT FOR ALERTNESS WHILE MAINTAINING SAFETY AND COMFORT. IV'S PATENT AND SALINE LOCK, MACIEL CATHETER PATENT AND DRAINING TO GRAVITY. FALL AND SAFETY PRECAUTIONS IN PLACE. Rosy RIZVI AWARE OF CPAP ORDER.
[2019-05-30] MEDS: LEVOTHYROXINE SODIUM 50 MCG TAB PO SCH (07:22)
[2019-05-30] MEDS: BUDESONIDE (INHALATION) 0.5 MG/2 ML NEB NEB SCH ×2 (10:04→18:15)
[2019-05-30] MEDS: cefTRIAXone 1GM/50ML D5W 50 ML IV SCH (10:12)
[2019-05-30] MEDS: SODIUM CHLOR 0.9% PF (SALINE LOCK) 10ML VIAL/SYR IV SCH ×2 (10:14→22:00)
[2019-05-30] MEDS: FAMOTIDINE (10MG/ML) 2ML VL IV SCH ×2 (10:14→22:00)
[2019-05-30] MEDS: AZITHROMYCIN 500MG/ 250ML 250 ML IV SCH (10:15)
[2019-05-30] MEDS: ENOXAPARIN SOD 40 MG/0.4 ML SYRINGE SC SCH (10:15)
--- NOTE | 2019-05-30 10:19 | NUR ---
HOSPITALIST AT BEDSIDE DR PINTO UPDATED ON PATIENT'S STATUS AND NEURO STATUS OF ABILITY TO OPEN EYES WHEN CALLED BY NAME BUT UNABLE TO FOLLOW COMMANDS AT THIS TIME - FALLS BACK TO SLEEP. DR PINTO ALSO AWARE OF PATIENT GIVEN PROPOFOL DURING FARM LOAN REPRESENTATIVE FOR AGITATION WHEN FAMILY AT BEDSIDE. DR PINTO ASSESSED PATIENT AND VERBALIZED UNDERSTANDING. NO ORDERS AT THIS TIME. WILL CONTINUE TO MONITOR PATIENT'S ABILITY TO FOLLOW COMMANDS DURING SHIFT IN ATTEMPT TO CPAP. FALL AND SAFETY PRECAUTIONS IN PLACE.
--- NOTE | 2019-05-30 10:44 | NUR ---
COMFORT/NEURO STATUS/ELEVATED TEMP COMFORT MEASURES PROVIDED, PATIENT REPOSITIONED AND FELT WARM TO TOUCH - ORAL TEMPERATURE 99.8, COOLING MEASURES APPLIED. NEURO STATUS: PATIENT OPENS EYES WHEN CALLED BY NAME AND ABLE TO SUSTAIN EYES OPEN FOR A FEW MINUTES AND FOLLOW SIMPLE COMMANDS, HOWEVER STAFF NEEDS TO ENCOURAGE HER TO STAY AWAKE SHE IS FATIGUED AND FALLS BACK TO SLEEP. PLAN OF CARE HAS BEEN DISCUSSED WITH PATIENT BY THIS NURSE AND Rosy RIZVI WILL CONTINUE TO MONITOR AND ENCOURAGE PATIENT.
--- NOTE | 2019-05-30 12:00 | NUR ---
TEMP REASSESSMENT CURRENT AXILLARY TEMPERATURE 98.5 AFTER COOLING MEASURES. WILL CONTINUE TO MONITOR.
--- NOTE | 2019-05-30 14:45 | NUR ---
FAMILY AT BEDSIDE PATIENT'S SON AT BEDSIDE, UPDATED ON PATIENT'S STATUS.
[2019-05-30] MEDS ORDERED: IBUPROFEN 100MG/5ML ORAL SUSP 100 MG/5 ML UD GT PRN (22:45)
[2019-05-30] MEDS ORDERED: MORPHINE SULFATE 4 MG/ML SYR/VIAL IV PRN (22:45)
[2019-05-31] VITALS (37 sets, daily range): BP systolic 118–148; BP diastolic 69–92
[2019-05-31] MEDS: InsuLIN REG 1unit/0.01ml Soln (100units/ml) SC SCH ×4 (01:19→12:53)
[2019-05-31] MEDS: ACCU-CHEK COMFORT CURVE STRIP VI SCH ×4 (01:19→12:52)
[2019-05-31] MEDS: ALBUTEROL SULF 2.5 MG/0.5ML(0.5%) NEB SOLN NEB SCH ×6 (02:04→22:34)
[2019-05-31] MEDS: IPRATROPIUM BROM 0.5 MG/2.5ML INH SOL NEB SCH ×6 (02:04→22:34)
[2019-05-31 04:40] LABS: Hematocrit 32.8 % (36.0-46.0); Hemoglobin 11.1 g/dL (12.2-16.2); Mean Corpuscular Hemoglobin 32.2 pg (28.0-32.0); Mean Corpuscular Hgb Conc. 33.9 g/dL (32.0-36.0); Mean Corpuscular Volume 94.9 fL (80.0-100.0); Platelet Count (auto) 272 10^3/uL (140-450); Red Blood Cells 3.46 10^6/uL (4.0-5.20); Red Cell Distribution Width 13.9 % (11.8-14.3); White Blood Cell 10.3 10^3/uL (4.4-10.8)
[2019-05-31 04:44] LABS: BUN/Creatinine Ratio 48.1; Calcium 7.3 mg/dL (8.5-10.1); Potassium 4.3 mmol/L (3.5-5.1)
[2019-05-31 04:45] LABS: Basophils % (manual) 0 (0.0-2.0); Blast Cells 0; Eosinophils % (manual) 0 (0-7); Myelocytes % 0; Promyelocytes % 0; Reactive Lymphocytes 0
[2019-05-31] MEDS: methylPREDNISolone SOD SUCC 125 MG/2 ML VL IV SCH (06:21)
[2019-05-31] MEDS: LEVOTHYROXINE SODIUM 50 MCG TAB PO SCH (06:22)
[2019-05-31 06:24] LABS: Band Neutrophils % (manual) 6; Lymphocytes % (manual) 1 (10.0-50.0); Metamyelocytes % 2; Monocytes % (manual) 1 (0-12)
--- NOTE | 2019-05-31 07:30 | NUR ---
AM ASSESSMENT COMPLETED. PT SLEEPY, FOLLOWING COMMANDS, RT PLANNING ON PLACING PT ON CPAP AND EXTUBATING PT IF PARAMETERS ARE WNL IF OK WITH MD.VSS, AFEBRILE, ALL MONITOR ALARMS REVIEWED.
--- NOTE | 2019-05-31 07:38 | NUR ---
REPORT GIVEN TO SALBADOR LYNN.
--- NOTE | 2019-05-31 09:06 | NUR ---
RT NOTE: PAGED VIA PBX FOR CPAP ABG RESULTS AND PARAMETERS.
[2019-05-31] MEDS: SODIUM CHLOR 0.9% PF (SALINE LOCK) 10ML VIAL/SYR IV SCH ×2 (09:25→22:00)
[2019-05-31] MEDS: cefTRIAXone 1GM/50ML D5W 50 ML IV SCH (09:26)
[2019-05-31] MEDS: ENOXAPARIN SOD 40 MG/0.4 ML SYRINGE SC SCH (09:26)
[2019-05-31] MEDS: FAMOTIDINE (10MG/ML) 2ML VL IV SCH ×2 (09:27→22:30)
--- NOTE | 2019-05-31 09:29 | NUR ---
RT NOTE: DR. PINTO PAGED VIA PBX 2ND ATTEMPT.
[2019-05-31] MEDS: BUDESONIDE (INHALATION) 0.5 MG/2 ML NEB NEB SCH ×2 (09:46→22:34)
--- NOTE | 2019-05-31 09:56 | NUR ---
RT NOTE: PT. EXTUBATED WITHOUT INCIDENT PER DR. PINTO TELEPHONE ORDER. NO STRIDOR NOTED. PT. PLACED ON ORDER MED NEB TX. NO S/S OF RESPIRATORY DISTRESS NOTED. RN MONICA AWARE. WILL CONTINUE TO MONITOR.
--- NOTE | 2019-05-31 10:12 | NUR ---
RT NOTE: PT. PLACED ON COOL AEROSOL MASK 40% FIO2. POX 93%. WILL CONTINUE TO MONITOR.
--- NOTE | 2019-05-31 10:20 | NUR ---
DR. PINTO IN TO SEE PT. NOTIFIED OF FOUL SMELLING VAGINAL DISCHARGE. MD ORDERED TO COLLECT CULTURES FOR STD'S AND SENT TO LAB AND TO HAVE DR. GUEVARA FOLLOW UP ON SATURDAY.
[2019-05-31] MEDS: AZITHROMYCIN 500MG/ 250ML 250 ML IV SCH (10:50)
--- NOTE | 2019-05-31 11:30 | NUR ---
CULTURES OF VAGINAL DISCHARGED COLLECTED & SENT TO LAB.
--- NOTE | 2019-05-31 12:05 | NUR ---
Nutrition Follow-up Notes Wt.: 101.3 kg Pt`s successfully extubated today when rounded on BIPAp with no famil;y by beside. per RN pt awaiting ST eval and will advance diet per ST. per RN pt is currently NPO and off EN support Est. Needs: 1550 kcal to 2100 kcal (15-20 kcal/kgBW), 57 gms to 68 gms pro (1.0-1.2 gms/kgIBW: 57 kg). Will continue to monitor pertinent labs and reassess nutrient need prn Labs: BUN 26 H, GLU 139 H, CA 7.3 L. Skin: Salinas scale 10 high risk, GI: Pt has no BM reported per acquisition marketing coordinator. PES: Increased nutrient needs r/t current/chronic medical/nutritional status aeb intubated, sedated, mod hypoalbuminemia, NPO. Altered nutrition related lab values r/t current/chronic medical condition aeb hyperglycemia, hypocalcemia and mild hypoalbuminemia Will continue to monitor NPO status, skin status, pertinent labs and weight trend. F/u in 2 to 3 days. Rec.: 1.) If Albumin level continues trending down, consider Prostat 1 pkt BID. 2.) Advance gradually to oral diet when medically appropriate. 3.) Refer to RD for further nutrition educ. and weight monitoring upon discharge. 4.) Continue current plan of care.
[2019-05-31] MEDS: methylPREDNISolone SOD SUCC 40 MG/ML VL IV SCH ×2 (14:33→22:25)
--- NOTE | 2019-05-31 19:09 | NUR ---
Respiratory note: at bedside for med neb tx. pts family at bedside.
--- NOTE | 2019-05-31 22:34 | NUR ---
Respiratory note: AT BEDSIDE FOR MED STEVEN MAYES.
[2019-06-01] VITALS (34 sets, daily range): BP systolic 115–154; BP diastolic 66–88
[2019-06-01] MEDS: LORazepam 2MG/ML-1ML VIAL IV PRN ×2 (01:35→21:35)
[2019-06-01] MEDS: ALBUTEROL SULF 2.5 MG/0.5ML(0.5%) NEB SOLN NEB SCH ×6 (02:00→22:21)
[2019-06-01] MEDS: IPRATROPIUM BROM 0.5 MG/2.5ML INH SOL NEB SCH ×6 (02:00→22:22)
--- NOTE | 2019-06-01 02:00 | NUR ---
Respiratory note: 0200 MED NEB TX NON ADMINISTERED PER SHANE ERICKSON PT HAS BEEN RESTLESS, PT IS FINALLY GETTING SOME SLEEP. SHANE ERICKSON AWARE I CAN BE PAGED IF SHE WAKES UP AND IS IN ANY DISTRESS.
[2019-06-01 04:17] LABS: Hematocrit 32.3 % (36.0-46.0); Hemoglobin 10.7 g/dL (12.2-16.2); Mean Corpuscular Hemoglobin 31.6 pg (28.0-32.0); Mean Corpuscular Volume 95.5 fL (80.0-100.0); Platelet Count (auto) 252 10^3/uL (140-450); Red Blood Cells 3.38 10^6/uL (4.0-5.20); Red Cell Distribution Width 13.5 % (11.8-14.3); White Blood Cell 9.7 10^3/uL (4.4-10.8)
[2019-06-01 04:37] LABS: Basophils % (manual) 0 (0.0-2.0); Blast Cells 0; Eosinophils % (manual) 0 (0-7); Metamyelocytes % 0; Myelocytes % 0; Promyelocytes % 0; Reactive Lymphocytes 0
[2019-06-01 06:33] LABS: Band Neutrophils % (manual) 1; Lymphocytes % (manual) 11 (10.0-50.0); Monocytes % (manual) 1 (0-12)
[2019-06-01] MEDS: ACCU-CHEK COMFORT CURVE STRIP VI SCH ×2 (07:50)
[2019-06-01] MEDS: LEVOTHYROXINE SODIUM 50 MCG TAB PO SCH (07:50)
[2019-06-01] MEDS: InsuLIN REG 1unit/0.01ml Soln (100units/ml) SC SCH ×2 (07:50)
[2019-06-01] MEDS: methylPREDNISolone SOD SUCC 40 MG/ML VL IV SCH (07:50)
--- NOTE | 2019-06-01 07:54 | NUR ---
PATIENT REFUSED MEDICATION SOLUMEDROL AND SYNTHROID REFUSED BY PATIENT
--- NOTE | 2019-06-01 08:00 | NUR ---
PT'S ASSESSMENT COMPLETED. EDUCATED ON POC. PT VERBALIZED UNDERSTANDING.
[2019-06-01] MEDS: FAMOTIDINE (10MG/ML) 2ML VL IV SCH ×2 (09:43→21:35)
[2019-06-01] MEDS: ENOXAPARIN SOD 40 MG/0.4 ML SYRINGE SC SCH (09:43)
[2019-06-01] MEDS: cefTRIAXone 1GM/50ML D5W 50 ML IV SCH (09:43)
[2019-06-01] MEDS: AZITHROMYCIN 500MG/ 250ML 250 ML IV SCH (09:44)
[2019-06-01] MEDS: SODIUM CHLOR 0.9% PF (SALINE LOCK) 10ML VIAL/SYR IV SCH ×2 (09:44→21:35)
--- NOTE | 2019-06-01 10:00 | NUR ---
BM ELIMINATION PT HAD AN EXTRA LARGE PASTY BROWN BM. PARTIAL BATH GIVEN. PT STILL WEAK FROM PARALYTIC. WILL REQUEST PRIMARY MD FOR PHYSICAL THERAPY.
[2019-06-01] MEDS: BUDESONIDE (INHALATION) 0.5 MG/2 ML NEB NEB SCH ×2 (11:00→22:22)
[2019-06-01] MEDS ORDERED: predniSONE 20 MG TAB PO ONE (12:30)
--- NOTE | 2019-06-01 15:34 | NUR ---
TRANSFERRED TO TELEMETRY ROOM 237A, SHANE LEA RECEIVED PT AT BEDSIDE. PT WAS TRANSFERRED VIA TELEMETRY BED WITH TELEMETRY MONITORING ACCOMPANIED BY ME & FORMING MILL OPERATOR ANGELA WHO VOLUNTEER TO PUSH BED DOWN FROM ICU HALLWAY ALL THE WAY TO TELEMETRY FLOOR. PT TOLERATED TRANSFER WITHOUT ANY COMPLICATIONS.
--- NOTE | 2019-06-01 15:45 | NUR ---
PATIENT ARRIVED TO UNIT PATIENT ALERT AND ORIENTED X4, DENIES ANY SOB OR DISTRESS OR ANY PAIN AT THIS TIME. ORIENTED PATIENT TO UNIT STAFF CALL LIGHT, VISITING HOURS AND POC PATIENT VERBALIZED UNDERSTANDING. PATIENT SKIN INTACT WITH AREAS OF CONCERN TO THE LEFT SHOULDER SHOWING SOME EXCORIATION/REDDNESS. BED IS IN LOWEST LOCKED POSITION CALL LIGHT WITHIN REACH. WILL CONTINUE TO MONITOR
--- NOTE | 2019-06-01 19:35 | NUR ---
OPENING SHIFT NOTE RECEIVED REPORT FROM DAYSMISAELFT RN. PATIENT A/O X4, BEDREST. PATIENT SITTING UP IN BED WITH FAMILY AT BEDSIDE. NO S/S OF DISTRESS OR SOB, NO PAIN NOTED OR REPORTED. UPDATED PATIENT ON POC, VERBALIZED UNDERSTANDING. BED LOCKED IN LOW POSITION, CALL LIGHT WITHIN REACH. WILL CONTINUE TO MONITOR PATIENT Q1HR AND PRN.
[2019-06-02] MEDS: ALBUTEROL SULF 2.5 MG/0.5ML(0.5%) NEB SOLN NEB SCH ×6 (02:38→22:40)
[2019-06-02] MEDS: IPRATROPIUM BROM 0.5 MG/2.5ML INH SOL NEB SCH ×6 (02:38→22:40)
[2019-06-02 05:42] VITALS: BP 147/77
[2019-06-02] MEDS: LORazepam 2MG/ML-1ML VIAL IV PRN ×2 (05:53→18:20)
[2019-06-02] MEDS: LEVOTHYROXINE SODIUM 50 MCG TAB PO SCH (06:42)
--- NOTE | 2019-06-02 08:00 | NUR ---
Opening Shift Note Assumed care of patient, awake and oriented. No S/S of distress/SOB. No complaints of severe pain except for throat soreness secondary to intubation/extubation. Minimal assists with ADL's. Instructed on POC and to call for assist PRN, will continue to monitor for changes Q1hr and PRN.
[2019-06-02 09:00] VITALS: BP 121/74
[2019-06-02] MEDS: cefTRIAXone 1GM/50ML D5W 50 ML IV SCH (09:25)
[2019-06-02] MEDS: BUDESONIDE (INHALATION) 0.5 MG/2 ML NEB NEB SCH ×2 (10:06→18:58)
--- NOTE | 2019-06-02 10:30 | NUR ---
Dr. Bashir at bedside, patient is advised. Orders received. Followed up vaginal discharge culture done 05/31 with microbiology, per staff so far normal beto result and will continue to monitor for any growth. Dr. Bashir made aware.
[2019-06-02] MEDS: AZITHROMYCIN 500MG/ 250ML 250 ML IV SCH (10:37)
[2019-06-02] MEDS: ENOXAPARIN SOD 40 MG/0.4 ML SYRINGE SC SCH (10:38)
[2019-06-02] MEDS: SODIUM CHLOR 0.9% PF (SALINE LOCK) 10ML VIAL/SYR IV SCH ×2 (10:38→21:31)
[2019-06-02] MEDS: FAMOTIDINE (10MG/ML) 2ML VL IV SCH (10:38)
[2019-06-02] MEDS: predniSONE 20 MG TAB PO SCH (10:38)
--- NOTE | 2019-06-02 10:45 | NUR ---
Vazquez catheter dc'd Order to discontinue vazquez catheter. Vazquez dc'd with clean technique following deflation of balloon. Patient tolerated well with no complaints of pain. Continue care.
[2019-06-02] MEDS ORDERED: THROAT LOZENGES(CEPASTAT) MT PRN (11:00)
--- NOTE | 2019-06-02 12:30 | NUR ---
WOUND CARE NOTE: Weekly reevaluation by wound care team. Patient on skin integrity monitoring due to low [place] and intubation. Patient is now extubated and is currently on telemetry. Last Salinas is 18. Patient is able to turn and reposition self. Abrasion to shoulder remains unchanged. Patient no longer need to be on rounding.
[2019-06-02 13:00] VITALS: BP 128/87
--- NOTE | 2019-06-02 14:35 | NUR ---
Nutrition Follow-up Notes Wt.: 101.5 kg today. Pt's with MD at bedside when rounded this morning. Pt's no signs of distress noted earlier, currently on Mechanical Soft diet with fair PO intake aeb 60% ave. consumed meals (x2) since yesterday. Est. Needs: 1550 kcal to 2100 kcal (15-20 kcal/kgBW), 57 gms to 68 gms pro (1.0-1.2 gms/kgIBW: 57 kg). Will continue to monitor pertinent labs and reassess nutrient need prn Labs: No new labs today; 06/01/19 POC Gluc 98 wnl, 05/31/19 Gluc 139 H, BUN 26 H, Ca 7.3 L. Skin: [place] scale 18, mod risk, pt's left buttock abrasion per RN doc. Pls refer to latest criminal investigative agent's notes for further details re:tx plans. GI: Pt had 2x BM yesterday per search marketing analyst. PES: Resolved: Increased nutrient needs r/t current/chronic medical/nutritional status aeb intubated, sedated, mod hypoalbuminemia, NPO. Altered nutrition related lab values r/t current/chronic medical condition aeb hyperglycemia, hypocalcemia and mild hypoalbuminemia Will continue to monitor PO intake, skin status, pertinent labs and weight trend. F/u in 3 to 5 days. Rec.: 1.) Consider Cardiac: 2 gms Na, Low Chol, Low Fat diet. 2.) Continue close supervision with meals. 3.) Consider daily MVI with minerals and Asc acid 500 mgs BID prn. 4.) If Albumin level continues trending down, consider Prostat 1 pkt BID. 5.) Refer to RD for further nutrition educ. and weight monitoring upon discharge. 6.) Continue current plan of care.
[2019-06-02 17:00] VITALS: BP 120/64
--- NOTE | 2019-06-02 19:35 | NUR ---
OPENING SHIFT NOTE RECEIVED REPORT FROM DAYSHIFT RN. PATIENT A/O X4, MODERATE ASSIST TO WHEELCHAIR. PATIENT SITTING UP IN BED ON TELEPHONE. NO S/S OF DISTRESS OR SOB, NO PAIN NOTED OR REPORTED. UPDATED PATIENT ON POC, VERBALIZED UNDERSTANDING. BED LOCKED IN LOW POSITION, CALL LIGHT WITHIN REACH. WILL CONTINUE TO MONITOR PATIENT Q1HR AND PRN.
[2019-06-02 19:55] VITALS: BP 120/64
[2019-06-02] MEDS: FAMOTIDINE 20 MG TAB PO SCH (21:31)
[2019-06-02 21:36] VITALS: BP 105/68
[2019-06-03] MEDS: ALBUTEROL SULF 2.5 MG/0.5ML(0.5%) NEB SOLN NEB SCH ×3 (02:31→09:56)
[2019-06-03] MEDS: IPRATROPIUM BROM 0.5 MG/2.5ML INH SOL NEB SCH ×3 (02:32→09:57)
[2019-06-03] MEDS: LORazepam 2MG/ML-1ML VIAL IV PRN (04:05)
[2019-06-03 04:47] VITALS: BP 135/70
[2019-06-03] MEDS: LEVOTHYROXINE SODIUM 50 MCG TAB PO SCH (06:34)
[2019-06-03] MEDS: BUDESONIDE (INHALATION) 0.5 MG/2 ML NEB NEB SCH (06:49)
--- NOTE | 2019-06-03 08:00 | NUR ---
Opening Shift Note Assumed care of patient, awake and alert. No S/S of distress/SOB or pain. Instructed on POC and to call for assist.
[2019-06-03 09:00] VITALS: BP 116/60
[2019-06-03] MEDS: FAMOTIDINE 20 MG TAB PO SCH (09:27)
[2019-06-03] MEDS: ENOXAPARIN SOD 40 MG/0.4 ML SYRINGE SC SCH (09:27)
[2019-06-03] MEDS: cefTRIAXone 1GM/50ML D5W 50 ML IV SCH (09:27)
[2019-06-03] MEDS: SODIUM CHLOR 0.9% PF (SALINE LOCK) 10ML VIAL/SYR IV SCH (09:27)
[2019-06-03] MEDS: predniSONE 20 MG TAB PO SCH (09:28)
[2019-06-03] MEDS ORDERED: AZITHROMYCIN 250 MG TAB PO SCH (10:00)
--- NOTE | 2019-06-03 12:30 | NUR ---
[facility]SA nares sent to Lab.
[2019-06-03 13:00] VITALS: BP 124/68
[2019-06-03 13:22] VITALS: BP 124/68
--- NOTE | 2019-06-03 14:00 | NUR ---
Per patient she will make own appointment with her senior physical therapist in [place] post discharge. PICC line removed.
--- NOTE | 2019-06-03 14:00 | NUR ---
Discharge instructions given as ordered. Encourage to follow up with PMD Dr. Crissy Douglass in 1-2 weeks as instructed, patient already made an appointment to see him on 07/06/19. All questions and concerns addressed. Patient verbalized understanding. Medication reconciliation form completed and copy given to patient. IV removed with catheter intact, pressure dressing applied. Telemetry unit returned to ICU. Patient taken to vehicle via wheelchair with all personal belongings, accompanied by staff and family member. No distress noted at time of departure.
== END 2019-06-03 14:00 | disposition home or self-care (01) | DRG 207 ==
LOC: ER 19:36 → MERGE 19:37 → TELE 19:37 → ICU WEST 05-25 00:50 → TELE-EAST 06-01 15:17
PROVIDERS: ADMIT Internal Medicine; ATTEND Internal Medicine
PROC: 5A1955Z Respiratory Ventilation, Greater than 96 Consecutive Hours (ICD-10-PCS; principal; 2019-05-24)
PROC: 0BH17EZ Insertion of Endotracheal Airway into Trachea, Via Natural or Artificial Opening (ICD-10-PCS; 2019-05-24)
PROC: 5A09357 Assistance with Respiratory Ventilation, Less than 24 Consecutive Hours, Continuous Positive Airway Pressure (ICD-10-PCS; 2019-05-24)
PROC: 02HV33Z Insertion of Infusion Device into Superior Vena Cava, Percutaneous Approach (ICD-10-PCS; 2019-05-25)
DX: J96.00 Acute respiratory failure, unspecified whether with hypoxia or hypercapnia (principal); J18.9 Pneumonia, unspecified organism; J45.901 Unspecified asthma with (acute) exacerbation; K21.9 Gastro-esophageal reflux disease without esophagitis; E66.01 Morbid (severe) obesity due to excess calories; B95.7 Other staphylococcus as the cause of diseases classified elsewhere; Z85.850 Personal history of malignant neoplasm of thyroid; Z95.810 Presence of automatic (implantable) cardiac defibrillator; Z68.36 Body mass index [BMI] 36.0-36.9, adult; Z88.6 Allergy status to analgesic agent; Z88.8 Allergy status to other drugs, medicaments and biological substances
CPT/HCPCS: 31500; 36415; 36569; 36600; 71045; 80048; 80053; 81001; 82550; 82805; 82962; 83735; 83880; 84443; 84484; 84702; 85007; 85025; 85027; 85610; 85730; 87070; 87081; 87088; 87147; 87205; 93306; 94002; 94003; 94640; 94644; 94645; 94660; 97110; 97116; 97530; 99291; A4618; G0378; J0330; J0696; J1815; J2250; J2405; J2704; J3480; J3490; J7060

== ENCOUNTER 2019-11-17 17:35 | Inpatient (IN) | payer MEDICARE ==
[~2019-11-17] VITALS: Ht 165.1 cm; Wt 99.7 kg
[~2019-11-17 17:35] MED LIST changes: -AZIT250T7 PO; +AZIT250T9 PO; +LEVO175T31 PO
[2019-11-17] MEDS ORDERED: IPRATROPIUM BROM 0.5 MG/2.5ML INH SOL NEB ONE (18:30)
[2019-11-17] MEDS ORDERED: ALBUTEROL SULF 2.5 MG/0.5ML(0.5%) NEB SOLN NEB ONE (18:30)
[2019-11-17 18:58] LABS: Basophils # (auto) 0.1 10 ^3/uL (0-0.2); Basophils % (auto) 1.2 % (0.0-2.0); Eosinophils # (auto) 0.9 10 ^3/uL (0-0.8); Eosinophils % (auto) 13.4 % (0.0-7.0); Hemoglobin 12.3 g/dL (12.2-16.2); Lymphocytes # (auto) 1.1 10 ^3/uL (0.4-5.4); Lymphocytes % (auto) 17.4 % (10.0-50.0); Mean Corpuscular Hemoglobin 30.6 pg (28.0-32.0); Mean Corpuscular Hgb Conc. 33.3 g/dL (32.0-36.0); Mean Corpuscular Volume 91.9 fL (80.0-100.0); Monocytes # (auto) 0.3 10 ^3/uL (0-1.3); Monocytes % (auto) 5.1 % (0.0-12.0); Neutrophils # (auto) 4.1 10 ^3/uL (1.6-8.6); Neutrophils % (auto) 62.9 % (37.0-80.0); Platelet Count (auto) 424 10^3/uL (140-450); Red Blood Cells 4.03 10^6/uL (4.0-5.20); Red Cell Distribution Width 14.5 % (11.8-14.3); White Blood Cell 6.6 10^3/uL (4.4-10.8)
[2019-11-17] MEDS ORDERED: methylPREDNISolone SOD SUCC 125 MG/2 ML VL IV ONE (19:00)
[2019-11-17 19:13] LABS: INR 1.03 (0.9-1.15); Partial Thromboplastin Time 34.7 sec (23.64-32.05)
[2019-11-17 19:21] LABS: Alanine Aminotransferase 20 U/L (13-56); Albumin 3.5 g/dL (3.4-5.0); Anion Gap 11 (5-15); Blood Urea Nitrogen 16 mg/dL (7-18); Calcium 7.5 mg/dL (8.5-10.1); Carbon Dioxide 22 mmol/L (21-32); Chloride 108 mmol/L (98-107); Glucose 74 mg/dL (74-106); Magnesium 2.3 mg/dL (1.6-2.6); Potassium 3.3 mmol/L (3.5-5.1); Sodium 141 mmol/L (136-145)
[2019-11-17 19:26] LABS: Alkaline Phosphatase 87 U/L (45-117); Aspartate Aminotransferase 18 U/L (15-37); Bilirubin, Total 0.2 mg/dL (0.2-1.0); GFR African American 103 mL/min; GFR Non-African American 85 mL/min; Total Protein 7.4 g/dL (6.4-8.2)
[2019-11-17] MEDS ORDERED: ACETAMINOPHEN 500 MG TAB PO ONE (20:15)
[2019-11-17] MEDS ORDERED: ONDANSETRON HCL 4 MG/2 ML VIAL IV PRN (21:45)
[2019-11-17] MEDS ORDERED: ACETAMINOPHEN 325 MG TAB PO PRN (21:45)
[2019-11-17] MEDS ORDERED: NITROGLYCERIN 0.4 MG SL TAB SL PRN (22:15)
[2019-11-17] MEDS ORDERED: MORPHINE SULF INJ 2 MG/ML SYRINGE 1ML IV PRN (22:15)
[2019-11-17] MEDS: FAMOTIDINE 20 MG TAB PO SCH (22:49)
[2019-11-17 22:50] LABS: Calcium 7.7 mg/dL (8.5-10.1)
[2019-11-17] MEDS: cefTRIAXone 1GM/50ML D5W 50 ML IV SCH (23:29)
[2019-11-17] MEDS: HYDROcodone-ACET 5/325MG TAB PO PRN (23:36)
[2019-11-18] VITALS (8 sets, daily range): BP systolic 111–140; BP diastolic 74–95
[2019-11-18] MEDS ORDERED: BUPR100T14 PO (02:12)
[2019-11-18] MEDS ORDERED: BECL80AE11 IN (02:12)
[2019-11-18] MEDS ORDERED: FLUT250M2 IN (02:12)
[2019-11-18] MEDS ORDERED: LOSA-39 PO (02:12)
[2019-11-18] MEDS ORDERED: FAM20T PO (02:12)
[2019-11-18] MEDS: HYDROcodone-ACET 5/325MG TAB PO PRN ×3 (03:46→19:58)
[2019-11-18 06:01] LABS: Basophils # (auto) 0 10 ^3/uL (0-0.2); Basophils % (auto) 0.3 % (0.0-2.0); Eosinophils # (auto) 0 10 ^3/uL (0-0.8); Hematocrit 35.3 % (36.0-46.0); Hemoglobin 11.8 g/dL (12.2-16.2); Lymphocytes # (auto) 0.8 10 ^3/uL (0.4-5.4); Lymphocytes % (auto) 8.8 % (10.0-50.0); Mean Corpuscular Hemoglobin 30.9 pg (28.0-32.0); Mean Corpuscular Hgb Conc. 33.5 g/dL (32.0-36.0); Mean Corpuscular Volume 92.1 fL (80.0-100.0); Monocytes # (auto) 0.1 10 ^3/uL (0-1.3); Neutrophils % (auto) 89.9 % (37.0-80.0); Nucleated Red Blood Cells % 0.1 %; Platelet Count (auto) 417 10^3/uL (140-450); Red Blood Cells 3.84 10^6/uL (4.0-5.20); Red Cell Distribution Width 14.1 % (11.8-14.3); White Blood Cell 8.8 10^3/uL (4.4-10.8)
[2019-11-18] MEDS: LEVOTHYROXINE SODIUM 50 MCG TAB PO SCH (06:09)
[2019-11-18] MEDS: ALBUTEROL SULF 2.5 MG/0.5ML(0.5%) NEB SOLN NEB SCH ×4 (06:13→18:11)
[2019-11-18] MEDS: IPRATROPIUM BROM 0.5 MG/2.5ML INH SOL NEB SCH ×4 (06:14→18:11)
[2019-11-18] MEDS: methylPREDNISolone SOD SUCC 125 MG/2 ML VL IV SCH ×2 (09:19→21:49)
[2019-11-18] MEDS: cefTRIAXone 1GM/50ML D5W 50 ML IV SCH (09:19)
[2019-11-18] MEDS: METOPROLOL SUCCINATE XL 50 MG TAB PO SCH (09:20)
[2019-11-18] MEDS: HCTZ 25 MG TAB PO SCH (09:20)
[2019-11-18] MEDS: busPIRone HCL 10 MG TAB PO SCH (09:20)
[2019-11-18] MEDS: LOSARTAN POTASSIUM 50 MG TAB PO SCH (09:20)
[2019-11-18] MEDS: FAMOTIDINE 20 MG TAB PO SCH ×2 (09:20→21:49)
[2019-11-18] MEDS: BUDESONIDE (INHALATION) 0.5 MG/2 ML NEB NEB SCH (18:11)
[2019-11-18] MEDS: TEMAZEPAM 15 MG CAP PO PRN (21:49)
[2019-11-19] MEDS: ALBUTEROL SULF 2.5 MG/0.5ML(0.5%) NEB SOLN NEB SCH ×5 (00:23→23:35)
[2019-11-19] MEDS: IPRATROPIUM BROM 0.5 MG/2.5ML INH SOL NEB SCH ×5 (00:23→23:35)
[2019-11-19] MEDS: HYDROcodone-ACET 5/325MG TAB PO PRN ×3 (04:22→19:39)
[2019-11-19 05:00] VITALS: BP 123/90
[2019-11-19] MEDS: LEVOTHYROXINE SODIUM 50 MCG TAB PO SCH (06:01)
[2019-11-19] MEDS: BUDESONIDE (INHALATION) 0.5 MG/2 ML NEB NEB SCH ×2 (07:14→18:32)
[2019-11-19 09:00] VITALS: BP 137/85
[2019-11-19] MEDS: busPIRone HCL 10 MG TAB PO SCH (09:00)
[2019-11-19] MEDS: methylPREDNISolone SOD SUCC 125 MG/2 ML VL IV SCH ×2 (09:00→22:39)
[2019-11-19] MEDS: cefTRIAXone 1GM/50ML D5W 50 ML IV SCH (09:00)
[2019-11-19] MEDS: FAMOTIDINE 20 MG TAB PO SCH ×2 (09:01→22:39)
[2019-11-19] MEDS: METOPROLOL SUCCINATE XL 50 MG TAB PO SCH (09:01)
[2019-11-19] MEDS: HCTZ 25 MG TAB PO SCH (09:01)
[2019-11-19] MEDS: LOSARTAN POTASSIUM 50 MG TAB PO SCH (09:01)
[2019-11-19 13:00] VITALS: BP 97/56
[2019-11-19 17:00] VITALS: BP 138/63
[2019-11-19 22:00] VITALS: BP 124/78
[2019-11-19] MEDS: TEMAZEPAM 15 MG CAP PO PRN (23:04)
[2019-11-20 05:00] VITALS: BP 106/63
[2019-11-20] MEDS: BUDESONIDE (INHALATION) 0.5 MG/2 ML NEB NEB SCH (05:45)
[2019-11-20] MEDS: IPRATROPIUM BROM 0.5 MG/2.5ML INH SOL NEB SCH ×2 (05:45→11:26)
[2019-11-20] MEDS: ALBUTEROL SULF 2.5 MG/0.5ML(0.5%) NEB SOLN NEB SCH ×2 (05:45→11:26)
[2019-11-20] MEDS: LEVOTHYROXINE SODIUM 50 MCG TAB PO SCH (06:13)
[2019-11-20] MEDS: HYDROcodone-ACET 5/325MG TAB PO PRN (06:14)
[2019-11-20 08:00] VITALS: BP 107/62
[2019-11-20 09:00] VITALS: BP 107/62
[2019-11-20] MEDS: busPIRone HCL 10 MG TAB PO SCH (09:55)
[2019-11-20] MEDS: cefTRIAXone 1GM/50ML D5W 50 ML IV SCH (09:55)
[2019-11-20] MEDS: methylPREDNISolone SOD SUCC 125 MG/2 ML VL IV SCH (09:55)
[2019-11-20] MEDS: LOSARTAN POTASSIUM 50 MG TAB PO SCH (09:55)
[2019-11-20] MEDS: FAMOTIDINE 20 MG TAB PO SCH (09:56)
[2019-11-20] MEDS: METOPROLOL SUCCINATE XL 50 MG TAB PO SCH (09:56)
[2019-11-20] MEDS: HCTZ 25 MG TAB PO SCH (09:56)
[2019-11-20 13:00] VITALS: BP 118/77
[2019-11-20 13:41] VITALS: BP 118/77
== END 2019-11-20 14:15 | disposition home or self-care (01) | DRG 189 ==
LOC: ER 17:35 → TELE 17:36 → TELE-CENTR 23:26
PROVIDERS: ADMIT Nurse Practitioner; ATTEND Family Medicine
DX: J96.20 Acute and chronic respiratory failure, unspecified whether with hypoxia or hypercapnia (principal); J45.902 Unspecified asthma with status asthmaticus; I42.9 Cardiomyopathy, unspecified; I13.0 Hypertensive heart and chronic kidney disease with heart failure and stage 1 through stage 4 chronic kidney disease, or unspecified chronic kidney disease; J20.9 Acute bronchitis, unspecified; E66.9 Obesity, unspecified; F32.9 Major depressive disorder, single episode, unspecified; F41.9 Anxiety disorder, unspecified; I50.9 Heart failure, unspecified; E78.00 Pure hypercholesterolemia, unspecified; E11.22 Type 2 diabetes mellitus with diabetic chronic kidney disease; E78.5 Hyperlipidemia, unspecified; E89.0 Postprocedural hypothyroidism; N18.9 Chronic kidney disease, unspecified; Z86.718 Personal history of other venous thrombosis and embolism; Z86.711 Personal history of pulmonary embolism; Z95.810 Presence of automatic (implantable) cardiac defibrillator; Z79.01 Long term (current) use of anticoagulants; Z83.3 Family history of diabetes mellitus; Z82.49 Family history of ischemic heart disease and other diseases of the circulatory system; Z82.3 Family history of stroke; Z88.6 Allergy status to analgesic agent; Z79.899 Other long term (current) drug therapy; Z68.35 Body mass index [BMI] 35.0-35.9, adult
CPT/HCPCS: 36415; 71045; 71250; 80048; 80053; 83735; 83880; 84443; 84484; 84702; 85025; 85379; 85610; 85730; 87070; 87804; 87880; 93005; 94640; G0378; J0696

== ENCOUNTER 2020-02-19 23:37 | Emergency (ER) | payer MEDICARE ==
[~2020-02-19] VITALS: Ht 165.1 cm; Wt 79.4 kg
[~2020-02-19 23:37] MED LIST changes: +BECL80AE11 IN; +BUPR100T14 PO; +FAMO20TA10 PO; +FLUT250M2 IN; -LEVO150T10 PO; +LOSA-39 PO
[2020-02-20] MEDS ORDERED: methylPREDNISolone SOD SUCC 125 MG/2 ML VL IV ONE (01:15)
[2020-02-20] MEDS ORDERED: cefTRIAXone 1GM/50ML D5W 50 ML IV ONE (01:15)
[2020-02-20 01:52] LABS: Basophils # (auto) 0.1 10 ^3/uL (0-0.2); Basophils % (auto) 0.5 % (0.0-2.0); Eosinophils # (auto) 0.2 10 ^3/uL (0-0.8); Eosinophils % (auto) 1.7 % (0.0-7.0); Hematocrit 36.8 % (36.0-46.0); Lymphocytes # (auto) 0.9 10 ^3/uL (0.4-5.4); Lymphocytes % (auto) 7.8 % (10.0-50.0); Mean Corpuscular Hemoglobin 31.1 pg (28.0-32.0); Mean Corpuscular Hgb Conc. 32.7 g/dL (32.0-36.0); Monocytes # (auto) 0.2 10 ^3/uL (0-1.3); Monocytes % (auto) 1.9 % (0.0-12.0); Neutrophils # (auto) 10.4 10 ^3/uL (1.6-8.6); Neutrophils % (auto) 88.1 % (37.0-80.0); Platelet Count (auto) 415 10^3/uL (140-450); Red Blood Cells 3.87 10^6/uL (4.0-5.20); Red Cell Distribution Width 15.8 % (11.8-14.3); White Blood Cell 11.8 10^3/uL (4.4-10.8)
[2020-02-20 02:00] VITALS: BP 110/69
[2020-02-20 02:04] LABS: INR 0.96 (0.9-1.15)
[2020-02-20 02:13] LABS: Alanine Aminotransferase 22 U/L (13-56); Albumin 3.4 g/dL (3.4-5.0); Anion Gap 9 (5-15); BUN/Creatinine Ratio 18.1; Blood Urea Nitrogen 17 mg/dL (7-18); Calcium 7.3 mg/dL (8.5-10.1); Carbon Dioxide 22 mmol/L (21-32); Chloride 105 mmol/L (98-107); GFR African American 85 mL/min; GFR Non-African American 70 mL/min; Glucose 98 mg/dL (74-106); Sodium 136 mmol/L (136-145)
[2020-02-20 02:27] LABS: Alkaline Phosphatase 78 U/L (45-117); Aspartate Aminotransferase 24 U/L (15-37); Total Protein 7.5 g/dL (6.4-8.2)
[2020-02-20 02:40] LABS: Bilirubin, Total 0.2 mg/dL (0.2-1.0)
== END 2020-02-20 03:10 | disposition home or self-care (01) ==
LOC: EDBD 23:37 → ER 23:40
DX: J45.901 Unspecified asthma with (acute) exacerbation (principal); E66.01 Morbid (severe) obesity due to excess calories; I13.0 Hypertensive heart and chronic kidney disease with heart failure and stage 1 through stage 4 chronic kidney disease, or unspecified chronic kidney disease; E11.22 Type 2 diabetes mellitus with diabetic chronic kidney disease; N18.9 Chronic kidney disease, unspecified; I50.9 Heart failure, unspecified; E78.5 Hyperlipidemia, unspecified; Z68.29 Body mass index [BMI] 29.0-29.9, adult
CPT/HCPCS: 36415; 71045; 80053; 81025; 83880; 84484; 84702; 85025; 85610; 93005; 96365; 96375; 99285; J0696; J2930

== ENCOUNTER 2020-04-23 17:50 | Emergency (ER) | payer MEDICARE ==
[~2020-04-23] VITALS: Ht 165.1 cm; Wt 89.4 kg
[2020-04-23 18:13] VITALS: BP 134/81
[2020-04-23] MEDS ORDERED: HYDROcodone-ACET 10/325MG TAB PO ONE (19:00)
[2020-04-23] MEDS ORDERED: IPRATROPIUM BROM 0.5 MG/2.5ML INH SOL NEB ONE (20:30)
[2020-04-23] MEDS ORDERED: ALBUTEROL SULF 2.5 MG/0.5ML(0.5%) NEB SOLN NEB ONE (20:30)
== END 2020-04-23 20:55 | disposition home or self-care (01) ==
LOC: ER 18:02
DX: S46.912A Strain of unspecified muscle, fascia and tendon at shoulder and upper arm level, left arm, initial encounter (principal); M62.838 Other muscle spasm; I13.0 Hypertensive heart and chronic kidney disease with heart failure and stage 1 through stage 4 chronic kidney disease, or unspecified chronic kidney disease; E11.22 Type 2 diabetes mellitus with diabetic chronic kidney disease; N18.9 Chronic kidney disease, unspecified; I50.9 Heart failure, unspecified; E78.5 Hyperlipidemia, unspecified; J45.909 Unspecified asthma, uncomplicated; E07.9 Disorder of thyroid, unspecified; Z88.6 Allergy status to analgesic agent; Z88.8 Allergy status to other drugs, medicaments and biological substances; V49.9XXA Car occupant (driver) (passenger) injured in unspecified traffic accident, initial encounter; Y93.I9 Activity, other involving external motion; Y92.410 Unspecified street and highway as the place of occurrence of the external cause; Y99.8 Other external cause status
CPT/HCPCS: 71250; 72125; 73030; 74176; 94640; 99285; J7644

== ENCOUNTER 2021-03-23 23:00 | Emergency (ER) | payer OTHER, MEDICAID ==
[~2021-03-23] VITALS: Ht 165.1 cm; Wt 113.4 kg
[~2021-03-23 23:00] MED LIST changes: -AMI25T PO; +AMIT25TA10 PO; -HCTZ25T PO; +HYDR25TA5 PO; -LEVO175T31 PO; +LEVO175T66 PO
[2021-03-23] MEDS ORDERED: EPINEPHrine HCL 1 MG/10 ML SYRG IV ONE (23:01)
[2021-03-23] MEDS ORDERED: SODIUM BICARBONATE 8.4% INJ 50ML SYRINGE IV ONE (23:01)
[2021-03-23] MEDS ORDERED: MAGNESIUM SULF 50% 40 MEQ/10 ML VL IV ONE (23:01)
[2021-03-23] MEDS ORDERED: ATROPINE SULF 1 MG/10ml SYR IM ONE (23:01)
[2021-03-23] MEDS ORDERED: EPINEPHrine HCL 250 ML IV ONE ×2 (23:22→23:30)
[2021-03-23] MEDS ORDERED: ALBUTEROL SULF 2.5 MG/0.5ML(0.5%) NEB SOLN ONE (23:24)
[2021-03-23 23:25] VITALS: BP 151/84
[2021-03-23] MEDS ORDERED: HYDROCORTISONE SOD SUCC 100 MG/2ML INJ VIAL IV ONE (23:30)
[2021-03-23 23:33] VITALS: BP 63/12
[2021-03-23] MEDS ORDERED: NOREPINEPHRINE 8 MG/250ML KIT 250 ML IV ONE (23:33)
[2021-03-23] MEDS ORDERED: VANCOMYCIN 1GM/250ML 250 ML IV ONE ×2 (23:35→23:45)
[2021-03-23] MEDS ORDERED: PIPERACILLIN-TAZO 4.5GM 100 ML IV ONE ×2 (23:35→23:45)
[2021-03-24] MEDS ORDERED: ALBUTEROL SULF 2.5 MG/0.5ML(0.5%) NEB SOLN ONE (00:20)
[2021-03-24] MEDS ORDERED: MIDAZOLAM HCL 2MG/2ML 2ml VIAL (1mg/ml) ONE (00:24)
[2021-03-24] MEDS ORDERED: SODIUM CHL 0.9% 50 ML ONE (00:24)
[2021-03-24] MEDS ORDERED: ANGIOMAX 250 MG VIAL IV ONE (00:24)
[2021-03-24] MEDS ORDERED: fentaNYL CITRATE 100 MCG/2 ML VL ONE (00:24)
[2021-03-24] MEDS ORDERED: IODIXANOL 320MG/ML 100ML BTL IV ONE (00:25)
[2021-03-24] MEDS ORDERED: LIDOCAINE 2%HCL (LOCAL ANESTH.) INJ 20ML MDV ONE (00:25)
[2021-03-24 00:26] LABS: Hematocrit 31.6 % (36.0-46.0); Hemoglobin 9.1 g/dL (12.2-16.2); Mean Corpuscular Hemoglobin 28.7 pg (28.0-32.0); Mean Corpuscular Hgb Conc. 28.9 g/dL (32.0-36.0); Mean Corpuscular Volume 99.5 fL (80.0-100.0); Red Blood Cells 3.17 10^6/uL (4.0-5.20); Red Cell Distribution Width 17.5 % (11.8-14.3); White Blood Cell 7.6 10^3/uL (4.4-10.8)
[2021-03-24] MEDS ORDERED: MORPHINE SULFATE 4 MG/ML SYR/VIAL ONE (00:30)
[2021-03-24] MEDS ORDERED: MORPHINE SULFATE INJECTION 2 MG/2 ML SYRG ONE (00:30)
[2021-03-24 00:43] LABS: INR 1.06 (0.9-1.15); Partial Thromboplastin Time 41.8 sec (23.6-33.0)
[2021-03-24] MEDS ORDERED: MORPHINE SULFATE 4 MG/ML SYR/VIAL IV ONE (00:45)
[2021-03-24 00:48] LABS: Albumin 2.7 g/dL (3.4-5.0); Calcium 7.3 mg/dL (8.5-10.1)
[2021-03-24 00:50] LABS: BUN/Creatinine Ratio 8.1; Basophils % (manual) 0 (0.0-2.0); Blast Cells 0; Metamyelocytes % 0; Promyelocytes % 0; Reactive Lymphocytes 0
[2021-03-24 01:03] LABS: Bilirubin, Total 0.2 mg/dL (0.2-1.0); Total Protein 6.2 g/dL (6.4-8.2)
[2021-03-24 01:14] LABS: Urine Bacteria FEW /hpf (None Seen); Urine Blood Negative /uL (Negative); Urine Mucus FEW (None Seen); Urine Specific Gravity 1.032 (1.001-1.035); Urine WBC 14 /hpf (0 - 5)
[2021-03-24 01:29] LABS: Band Neutrophils % (manual) 3; Eosinophils % (manual) 4 (0-7); Myelocytes % 1
[2021-03-24 01:30] LABS: Lymphocytes % (manual) 56 (10.0-50.0)
[2021-03-24] MEDS ORDERED: NOREPINEPHRINE 8 MG/250ML KIT 250 ML IV SCH (01:30)
[2021-03-24 01:31] LABS: Monocytes % (manual) 5 (0-12)
[2021-03-24] MEDS ORDERED: ALBUTEROL SULF 2.5 MG/0.5ML(0.5%) NEB SOLN NEB SCH (02:00)
[2021-03-24] MEDS ORDERED: IPRATROPIUM BROM 0.5 MG/2.5ML INH SOL NEB SCH (02:00)
[2021-03-24] MEDS ORDERED: BUDESONIDE (INHALATION) 0.5 MG/2 ML NEB NEB SCH (10:00)
== END 2021-03-24 13:53 ==
LOC: ER 23:00 → EDBD 23:00 → ER 03-24 13:53
DX: I46.9 Cardiac arrest, cause unspecified (principal); E11.22 Type 2 diabetes mellitus with diabetic chronic kidney disease; I13.0 Hypertensive heart and chronic kidney disease with heart failure and stage 1 through stage 4 chronic kidney disease, or unspecified chronic kidney disease; N18.9 Chronic kidney disease, unspecified; I50.89 Other heart failure; E78.5 Hyperlipidemia, unspecified; Z20.822 Contact with and (suspected) exposure to COVID-19
CPT/HCPCS: 36415; 36600; 71045; 80053; 81001; 82805; 85007; 85027; 85610; 85730; 87070; 87205; 87426; 92950; 93005; 94640; 96365; 96368; 96375; 99291; J0171; J1720; J2543; J3370; J3475; 94002; Q9967